=== PATIENT | female | born 1935 | race American Indian/Alaskan Native ===

== ENCOUNTER 2016-06-26 12:58 | Emergency (ER) | payer MEDICAID, MEDICARE, OTHER ==
[2016-06-26] MEDS ORDERED: Bisacodyl 10 MG Supp RECTAL ONE (13:18)
[2016-06-26] MEDS ORDERED: Ketorolac 30 MG/ML SDV IM ONE (13:24)
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
[2016-06-26] MEDS ORDERED: fentaNYL 12 MCG/HR Transdermal Patch TRDERM SCH (13:45)
[2016-06-26] MEDS ORDERED: Morphine 15 MG Tab.ER PO ONE (13:56)
[2016-06-26] MEDS ORDERED: Polyethylene Glycol 3350 Powder 17 GM Packet PO ONE (14:48)
[2016-06-26 14:56] VITALS: BP 137/68
== END 2016-06-26 15:26 | disposition home or self-care (01) ==
LOC: FB.ED 12:58
DX: K59.03 Drug induced constipation (principal); M54.41 Lumbago with sciatica, right side; E78.00 Pure hypercholesterolemia, unspecified; M19.90 Unspecified osteoarthritis, unspecified site; E11.9 Type 2 diabetes mellitus without complications
CPT/HCPCS: 96372; 99283; A9270; J1885

== ENCOUNTER 2016-06-29 14:45 | Emergency (ER) | payer MEDICARE ==
[2016-06-29] MEDS ORDERED: Lidocaine 2% 5 ML SDV INJECT ONE (15:15)
[2016-06-29] MEDS ORDERED: Ketorolac 30 MG/ML SDV IM ONE (15:15)
[2016-06-29] MEDS ORDERED: Triamcinolone Acetonide 40 MG/ML 1 ML MDV INJECT ONE (15:30)
[2016-06-29] MEDS ORDERED: Ketorolac 10 MG Tab PO ONE (16:07)
[2016-06-29 16:40] VITALS: BP 150/75
--- NOTE | 2016-06-30 01:46 | ER ---
DATE SEEN: 06/29/2016 REASON FOR VISIT: Pain, right hip. HISTORY OF PRESENT ILLNESS: This is an 80-year-old female complaining of right hip pain for 3-4 days with no trauma. Pain is on the side with radiation and worse with any movement. She tried to take Tylenol No. 3 and morphine with no improvement. REVIEW OF SYSTEMS: No fever or chills. No abdominal pain or back pain. No weakness. PAST MEDICAL HISTORY: Chronic back pain, constipation, GI bleed anemia. PHYSICAL EXAMINATION: GENERAL: Not in distress. VITAL SIGNS: Blood pressure 144/74, and pulse is 88. CHEST: Clear. ABDOMEN: Soft. MUSCULOSKELETAL: Stiff posture. There is tenderness in the right trochanteric bursa. Limited range of motion at the hip. IMPRESSION: Trochanteric bursitis acute. PLAN: I injected her with Kenalog 80 mg mixed with 2 mL of 2% into the tender most area on the right trochanteric bursa with no complications. An ice pack was placed there for 15 minutes. I also gave her 30 mg of Toradol IM. I recommended that she stop the Tylenol No. 3 and morphine, instead use Toradol 10 mg with food 3 times a day and then see Dr. Boyce tomorrow. I saw her about 1500 hours. /[id number] [place]
== END 2016-06-29 16:35 | disposition home or self-care (01) ==
LOC: FB.ED 14:45
DX: M70.61 Trochanteric bursitis, right hip (principal); Z86.2 Personal history of diseases of the blood and blood-forming organs and certain disorders involving the immune mechanism
CPT/HCPCS: 96372; 99283; J1885; J3301; 20610; A9270-GY

== ENCOUNTER 2017-04-20 04:15 | Inpatient (IN) | payer MEDICARE ==
[2017-04-20] MEDS ORDERED: Sodium Chloride 0.9% 500 ML IV ONE (04:18)
[2017-04-20] MEDS ORDERED: Ondansetron 4 MG/2 ML SDV IVPUSH ONE (04:18)
[2017-04-20] MEDS ORDERED: Pantoprazole 40 MG Vial IVPUSH ONE (04:18)
[2017-04-20] MEDS ORDERED: Pantoprazole 40 MG Vial ONE (05:24)
--- NOTE | 2017-04-20 07:43 | EDM.PDOC ---
ED HPI GENERAL MEDICAL PROBLEM - General Chief Complaint: Gastrointestinal Problem Stated Complaint: Vomiting Time Seen by Provider: 04/20/17 04:25 Source of Information: Reports: Patient, EMS History Limitations: Reports: No Limitations - History of Present Illness INITIAL COMMENTS - FREE TEXT/NARRATIVE: 81 y.o.w.f with H/O colon CA, Dx'd 20 years ago, came to the ed for abd. pain, no BM for 3 days and vomiting. Pt denied trauma. Pt lives by herself. No Dysuria , no dizziness. No other acute medical issues. BP 135/78 RR 18 Pulse ox 92% on RA Temp 36.7 pulse 87 Onset Date: 04/19/17 Onset Time: 06:00 Duration: Day(s):, Getting Worse, Intermittent Location: Reports: Abdomen Quality: Reports: Ache Severity: Mild Improves with: Reports: Rest Worsens with: Reports: Movement Context: Reports: Other (H/O abd. Surgery(?)) Associated Symptoms: Reports: Nausea/Vomiting Throat Pain Score (Numeric/FACES): 4 - Related Data Allergies Allergy/AdvReac Type Severity Reaction Status Date / Time No Known Allergies Allergy Verified 04/20/17 06:24 Home Meds: Home Meds NK [No Known Home Meds] 04/20/17 [History] Past Medical History HEENT History: Reports: Impaired Vision Cardiovascular History: Reports: High Cholesterol Gastrointestinal History: Reports: Chronic Constipation Musculoskeletal History: Reports: Back Pain, Chronic, Osteoarthritis, Osteoporosis, Other (See Below) Other Musculoskeletal History: History of broken vertebra. Neurological History: Reports: None Psychiatric History: Reports: None Endocrine/Metabolic History: Reports: Diabetes, Type II Dermatologic History: Reports: None - Infectious Disease History Infectious Disease History: Reports: Chicken Pox, Diphtheria, Shingles - Past Surgical History HEENT Surgical History: Reports: Cataract Surgery Social & Family History - Family History Family Medical History: Noncontributory - Tobacco Use Smoking Status *Q: Former Smoker Years of Tobacco use: 15 Packs/Tins Daily: 1 Used Tobacco, but Quit: No Month Tobacco Last Used: 40 YEARS AGO Second Hand Smoke Exposure: No - Caffeine Use Caffeine Use: Reports: Coffee, Tea Other Caffeine Use: 3 cups/day - Alcohol Use Days Per Week of Alcohol Use: 0 - Recreational Drug Use Recreational Drug Use: No - Living Situation & Occupation Occupation: Retired ED ROS GENERAL - Review of Systems Review Of Systems: See Below Constitutional: Reports: No Symptoms HEENT: Reports: No Symptoms Respiratory: Reports: No Symptoms Cardiovascular: Reports: No Symptoms Endocrine: Reports: No Symptoms GI/Abdominal: Reports: Abdominal Pain, Distension, Vomiting, Other (NO BM for 3 days) : Reports: No Symptoms Musculoskeletal: Reports: No Symptoms Skin: Reports: No Symptoms Neurological: Reports: No Symptoms Psychiatric: Reports: No Symptoms Hematologic/Lymphatic: Reports: No Symptoms Immunologic: Reports: No Symptoms ED EXAM, GI/ABD - Physical Exam Exam: See Below Exam Limited By: Physical Impairment General Appearance: Alert, Mild Distress, Thin Eyes: Bilateral: Normal Appearance Ears: Normal External Exam Nose: Normal Inspection Throat/Mouth: Normal Inspection, Normal Lips Head: Atraumatic, Normocephalic Neck: Normal Inspection, Supple Respiratory/Chest: No Respiratory Distress, Lungs Clear Cardiovascular: Normal Peripheral Pulses, Regular Rate, Rhythm GI/Abdominal Exam: Distended, Guarding, Tender (Female) Exam: Deferred Rectal (Female) Exam: Deferred Back Exam: Normal Inspection, Full Range of Motion Extremities: Normal Inspection, Normal Range of Motion, Non-Tender, No Pedal Edema Neurological: Alert, Oriented, CN II-XII Intact, Normal Cognition, Abnormal Gait (due to abd. pain) Psychiatric: Normal Affect Skin Exam: Warm, Dry, Intact, Normal Color, No Rash Lymphatic: No Adenopathy Course - Vital Signs Text/Narrative:: 81 y.o.w.f with H/O colon CA, Dx'd 20 years ago, came to the ed for abd. pain, no BM for 3 days and vomiting. Pt denied trauma. Pt lives by herself. No Dysuria , no dizziness. No other acute medical issues. BP 135/78 RR 18 Pulse ox 92% on RA Temp 36.7 pulse 87 PE: 81 y.o.w.f with abd. pain and womiting Imaging: CT abd/pelvis: SBO with transition point distal SB, New dx'd lumbar compression Fx (age undetermined) Impression: SBO, H/O Colon CA, Tx: Zofran, Protonix, NG tube with low volume suction Reexam: Improved 7.42 am: Consultation: Dr. Rosen, surgeon: CT abd/pelvis, he will OOT, if cancer, transfer, if no CA, admit to Hospitalist because he will be gone all day long 11.00 am: Consultation: Dr. Valdez, Hospitalist: accepted the patient for admission Plan: Admit to Med/surge inpatient Last Recorded V/S: Last Vital Signs Temp 36.6 C 04/20/17 16:00 Pulse 70 04/20/17 16:00 Resp 18 04/20/17 16:00 BP 133/65 04/20/17 16:00 Pulse Ox 94 L 04/20/17 16:00 - Orders/Labs/Meds Orders: Active Orders 24 hr Category Date Time Status Patient Status [ADT] Routine ADT 04/20/17 11:01 Active Gastrointestinal Tube Mgmt [RC] ASDIRECTED Care 04/20/17 10:55 Active Notify Provider Consults [RC] ASDIRECTED Care 04/20/17 11:11 Active Oxygen Therapy [RC] PRN Care 04/20/17 11:01 Active Up With Assistance [RC] ASDIRECTED Care 04/20/17 11:01 Active VTE/DVT Education [RC] Per Unit Routine Care 04/20/17 11:01 Active Vital Signs [RC] Q4H Care 04/20/17 11:01 Active Consult to Physician [CONS] Routine Cons 04/20/17 11:01 Ordered Nothing per Oral Now Diet [DIET] Diet 04/20/17 Breakfast Ordered Abdomen 2V AP Flat Upright [CR] Stat Exams 04/20/17 04:20 Taken CAUTI Risk Assessment [OM.PC] Routine Oth 04/20/17 11:10 Ordered Nasogastric Orogastric Tube Insertion [OM.PC] Routine Oth 04/20/17 10:53 Ordered Nasogastric Orogastric Tube Insertion [OM.PC] Urgent Oth 04/20/17 11:05 Ordered Resuscitation Status Routine Resus Stat 04/20/17 11:01 Ordered Medication Orders Lactated Ringer's (Ringers, Lactated) 1,000 mls @ 100 mls/hr IV ASDIRECTED BEBETO Last Admin: 04/20/17 13:30 Dose: 125 mls/hr Insulin Aspart (Novolog) 0 unit SUBCUT 0800,1200,1800,2100 BEBETO PRN Reason: Protocol Last Admin: 04/20/17 18:48 Dose: Not Given Sodium Chloride (Saline Flush) 10 ml FLUSH ASDIRECTED PRN PRN Reason: Keep Vein Open Labs: Laboratory Tests 04/20/17 04/20/17 04/20/17 Range/Units 04:40 04:40 04:40 WBC 6.5 (4.5-12.0) X10-3/uL RBC 4.40 (3.23-5.20) x10(6)uL Hgb 13.7 D (11.5-15.5) g/dL Hct 41.2 D (30.0-51.3) % MCV 93.6 (80-96) fL MCH 31.1 (27.7-33.6) pg MCHC 33.2 (32.2-35.4) g/dL RDW 14.4 (11.5-15.5) % Plt Count 182 (125-369) X10(3)uL MPV 8.4 (7.4-10.4) fL Neut % (Auto) 80.0 (46-82) % Lymph % (Auto) 12.9 L (13-37) % [place] % (Auto) 4.4 (4-12) % Eos % (Auto) 0 L (1.0-5.0) % Baso % (Auto) 2 (0-2) % Neut # (Auto) 5.2 (1.6-8.3) # Lymph # (Auto) 0.8 (0.6-5.0) # [place] # (Auto) 0.3 (0.0-1.3) # Eos # (Auto) 0.0 (0.0-0.8) # Baso # (Auto) 0.2 (0.0-0.2) # PT 11.0 (8.7-11.1) INR 1.09 (0.89-1.13) Sodium 143 (135-145) mmol/L Potassium 4.2 (3.5-5.3) mmol/L Chloride 106 (100-110) mmol/L Carbon Dioxide 26 (21-32) mmol/L BUN 14 (7-18) mg/dL Creatinine 0.7 (0.55-1.02) mg/dL Est Cr Clr Drug Dosing TNP Estimated GFR (MDRD) > 60 (>60) BUN/Creatinine Ratio 20.0 (9-20) Glucose 177 H (80-116) mg/dL Calcium 9.3 (8.6-10.2) mg/dL NT-Pro-B Natriuret Pep (<=450) pg/mL Urine Color (YELLOW) Urine Appearance (CLEAR) Urine pH (5.0-6.5) Ur Specific [place] (1.010-1.025) Urine Protein (NEGATIVE) mg/dL Urine Glucose (UA) (NEGATIVE) mg/dL Urine Ketones (NEGATIVE) mg/dL Urine Occult Blood (NEGATIVE) Urine Nitrite (NEGATIVE) Urine Bilirubin (NEGATIVE) Urine Urobilinogen (NEGATIVE) mg/dL Ur Leukocyte Esterase (NEGATIVE) Urine RBC (0) Urine WBC (0) Ur Squamous Epith Cells (NS,R,O) Urine Bacteria (NS) 04/20/17 04/20/17 Range/Units 04:40 06:40 WBC (4.5-12.0) X10-3/uL RBC (3.23-5.20) x10(6)uL Hgb (11.5-15.5) g/dL Hct (30.0-51.3) % MCV (80-96) fL MCH (27.7-33.6) pg MCHC (32.2-35.4) g/dL RDW (11.5-15.5) % Plt Count (125-369) X10(3)uL MPV (7.4-10.4) fL Neut % (Auto) (46-82) % Lymph % (Auto) (13-37) % [place] % (Auto) (4-12) % Eos % (Auto) (1.0-5.0) % Baso % (Auto) (0-2) % Neut # (Auto) (1.6-8.3) # Lymph # (Auto) (0.6-5.0) # [place] # (Auto) (0.0-1.3) # Eos # (Auto) (0.0-0.8) # Baso # (Auto) (0.0-0.2) # PT (8.7-11.1) INR (0.89-1.13) Sodium (135-145) mmol/L Potassium (3.5-5.3) mmol/L Chloride (100-110) mmol/L Carbon Dioxide (21-32) mmol/L BUN (7-18) mg/dL Creatinine (0.55-1.02) mg/dL Est Cr Clr Drug Dosing Estimated GFR (MDRD) (>60) BUN/Creatinine Ratio (9-20) Glucose (80-116) mg/dL Calcium (8.6-10.2) mg/dL NT-Pro-B Natriuret Pep 391 (<=450) pg/mL Urine Color Yellow (YELLOW) Urine Appearance Slightly cloudy (CLEAR) Urine pH 8.0 H (5.0-6.5) Ur Specific [place] 1.015 (1.010-1.025) Urine Protein Negative (NEGATIVE) mg/dL Urine Glucose (UA) Normal (NEGATIVE) mg/dL Urine Ketones Negative (NEGATIVE) mg/dL Urine Occult Blood Negative (NEGATIVE) Urine Nitrite Negative (NEGATIVE) Urine Bilirubin Negative (NEGATIVE) Urine Urobilinogen Normal (NEGATIVE) mg/dL Ur Leukocyte Esterase Negative (NEGATIVE) Urine RBC 0-5 (0) Urine WBC 0-5 (0) Ur Squamous Epith Cells Few H (NS,R,O) Urine Bacteria Few H (NS) Meds: Medications Generic Name Dose Route Start Last Admin Trade Name Freq PRN Reason Stop Dose Admin Lactated Ringer's 1,000 mls @ 100 mls/hr 04/20/17 13:00 04/20/17 13:30 Ringers, Lactated IV 125 mls/hr ASDIRECTED BEBETO Administration Insulin Aspart 0 unit 04/20/17 18:00 04/20/17 18:48 Novolog SUBCUT Not Given 0800,1200,1800,2100 [facility] Protocol Sodium Chloride 10 ml 04/20/17 13:31 Saline Flush FLUSH ASDIRECTED PRN Keep Vein Open Discontinued Medications Generic Name Dose Route Start Last Admin Trade Name Freq PRN Reason Stop Dose Admin Diatrizoate Meglum/Diatrizoate Sod 30 ml 04/20/17 09:26 04/20/17 10:02 Gastrografin 37% PO 04/20/17 09:27 30 ml . DIRECTED ONE Administration Sodium Chloride 500 mls @ 999 mls/hr 04/20/17 04:18 04/20/17 05:00 Normal Saline IV 04/20/17 04:48 999 mls/hr .BOLUS ONE Administration Iopamidol 75 ml 04/20/17 09:25 04/20/17 10:02 Isovue-370 (76%) IV 04/20/17 09:26 75 ml ONETIME ONE Administration Ondansetron HCl 8 mg 04/20/17 04:18 04/20/17 05:02 Zofran IVPUSH 04/20/17 04:19 8 mg ONETIME ONE Administration Pantoprazole Sodium 80 mg 04/20/17 04:18 04/20/17 05:23 Protonix Iv IVPUSH 04/20/17 04:19 80 mg .BOLUS ONE Administration Pantoprazole Sodium Confirm 04/20/17 05:24 04/20/17 05:39 Protonix Iv Administered 04/20/17 05:25 Not Given Dose 40 mg .ROUTE .STK-MED ONE Departure - Departure Time of Disposition: 10:57 Disposition: Admitted As Inpatient 65 Condition: Fair Clinical Impression: Small bowel obstruction due to adhesions - Discharge Information - My Orders Last 24 Hours: My Active Orders 04/20/17 04:20 Abdomen 2V AP Flat Upright [CR] Stat 04/20/17 10:53 Nasogastric Orogastric Tube Insertion [OM.PC] Routine 04/20/17 10:55 Gastrointestinal Tube Mgmt [RC] ASDIRECTED 04/20/17 11:01 Patient Status [ADT] Routine Oxygen Therapy [RC] PRN Up With Assistance [RC] ASDIRECTED VTE/DVT Education [RC] Per Unit Routine Vital Signs [RC] Q4H Consult to Physician [CONS] Routine Resuscitation Status Routine 04/20/17 11:05 Nasogastric Orogastric Tube Insertion [OM.PC] Urgent 04/20/17 11:10 CAUTI Risk Assessment [OM.PC] Routine 04/20/17 11:11 Notify Provider Consults [RC] ASDIRECTED 04/20/17 Breakfast Nothing per Oral Now Diet [DIET] - Assessment/Plan Last 24 Hours: My Active Orders 04/20/17 04:20 Abdomen 2V AP Flat Upright [CR] Stat 04/20/17 10:53 Nasogastric Orogastric Tube Insertion [OM.PC] Routine 04/20/17 10:55 Gastrointestinal Tube Mgmt [RC] ASDIRECTED 04/20/17 11:01 Patient Status [ADT] Routine Oxygen Therapy [RC] PRN Up With Assistance [RC] ASDIRECTED VTE/DVT Education [RC] Per Unit Routine Vital Signs [RC] Q4H Consult to Physician [CONS] Routine Resuscitation Status Routine 04/20/17 11:05 Nasogastric Orogastric Tube Insertion [OM.PC] Urgent 04/20/17 11:10 CAUTI Risk Assessment [OM.PC] Routine 04/20/17 11:11 Notify Provider Consults [RC] ASDIRECTED 04/20/17 Breakfast Nothing per Oral Now Diet [DIET]
[2017-04-20] MEDS ORDERED: Iopamidol 755 Mg/ML 75 ML Bottle IV ONE (09:25)
[2017-04-20] MEDS ORDERED: Diatrizoate Meglumine/Diatrizoate Sodium 37% 30 ML Bottle PO ONE (09:26)
--- NOTE | 2017-04-20 11:49 | CT ---
INDICATION: Abdominal pain, no BM for three days, x-ray showed small bowel obstruction. CT ABDOMEN AND CT PELVIS WITH CONTRAST: Spiral 2.5 mm axial sections were obtained through the abdomen and pelvis with oral and IV contrast, (75 mL Isovue 370 at 2 mL/second), with sagittal and coronal reconstructions 2017 and were compared with 08/28/2013 CT of the abdomen and pelvis and abdomen x-ray from 04/20/2017. Total exam DLP = 762.65 mGy-cm. There are some mild fibrotic changes at the lung bases bilaterally posteriorly in the lower lobes. Coronary artery calcification is suggested. The heart did not appear enlarged, however. Calcifications are noted in the aorta at the origins of the renal arteries and in the proximal right renal artery, in the iliac and femoral arteries. An appearance of a hernia may simply be the patients pannus. Increased severity of compression fractures is noted at L1 most severely and minimally at T12 with new compression fractures at L3 and L4 since the 2014 examination. Vacuum disk phenomenon is noted at L5-S1, although the disk is not narrowed. Vacuum disk phenomenon is also noted at T12-L1. An appearance of an AVM in the left lobe of the liver is not adequately delineated on the current examination. A tiny low density lesion is again noted in the lower pole of the right lobe of the liver, seen on coronal image #50 and essentially unchanged from the previous study. The spleen appeared normal with a splenule again noted inferolaterally. The images were somewhat delayed with a CT urogram in part obtained. No obstructive uropathy was suggested. No significant renal mass was identified, although a few tiny scar-like indentations in the cortices are noted. No large gallstones were demonstrated; however, layering out in a dependent manner, there is some increased density material, suggesting minimal gravel in the gallbladder, which is a new finding, compared with 2014. There appears to be a mild degree of thickening of the wall of the urinary bladder, which may be on the basis of cystitis but should be correlated clinically. The appendix appeared normal, visualized on coronal images #40 to #49. Proximal small bowel loops extending to the pelvis - ileum - are dilated. The dilated loops transition to normal caliber at the distal ileum in the pelvis. The exact etiology of the apparent relative obstruction is not determined. There is gas and stool in the area of the rectum to a minimal extent. Findings may represent an early or partial distal small bowel obstruction. No free air was seen. The stomach appears to be somewhat distended, which likely is on the basis of the distal small bowel obstructive process. IMPRESSION: 1. Distal small bowel obstruction with relatively normal caliber in the distal ileum. 2. Tiny hernia, ventral, unchanged from previous examination with pannus but no large ventral hernia seen. 3. Cholelithiasis. 4. Progressive osteoporotic compression fractures, mostly lumbar spine. 5. No definite liver abnormality visualized on the current study, except to note a tiny low density lesion, likely a tiny cyst in the right lobe of the liver, unchanged from previous study. 6. Very minimal scarring kidneys. 7. ASD/ASHD. 8. Minimal basilar scarring in the lung. Report was given by phone to Dr. Melendez at 1045 hours on 04/20/2017. JESID
[2017-04-20] MEDS: Lactated Ringers 1,000 ML IV SCH ×2 (13:30→23:55)
[2017-04-20] MEDS ORDERED: Sodium Chloride 0.9% 10 ML Syringe FLUSH PRN (13:31)
--- NOTE | 2017-04-20 13:48 | PCM.HP ---
H&P History of Present Illness - General Date of Service: 04/20/17 Source of Information: Patient History Limitations: Reports: No Limitations - History of Present Illness Initial Comments - Free Text/Narative: This is an 81-year-old female patient started having abdominal pain, abdominal distention and vomiting brown vomitus up. She came into the ER this morning and a CT scan that showed small bowel obstruction and was admitted with NG tube. Patient states she's had small bowel obstruction the past. She has a history of appendectomy. She denied any other history but I see she's had colon cancer in the past. She denies fevers, chills. She also states she felt constipated and has not moved her bowels or had any flatus. - Related Data Allergies/Adverse Reactions: Allergies Allergy/AdvReac Type Severity Reaction Status Date / Time No Known Allergies Allergy Verified 04/20/17 06:24 Home Medications: Home Meds NK [No Known Home Meds] 04/20/17 [History] Past Medical History HEENT History: Reports: Impaired Vision Cardiovascular History: Reports: High Cholesterol Gastrointestinal History: Reports: Chronic Constipation, Other (See Below) ( Colon cancer old chart) Musculoskeletal History: Reports: Back Pain, Chronic, Osteoarthritis, Osteoporosis, Other (See Below) Other Musculoskeletal History: History of broken vertebra. Neurological History: Reports: None Psychiatric History: Reports: None Endocrine/Metabolic History: Reports: Diabetes, Type II Dermatologic History: Reports: None - Infectious Disease History Infectious Disease History: Reports: Chicken Pox, Diphtheria, Shingles - Past Surgical History HEENT Surgical History: Reports: Cataract Surgery GI Surgical History: Reports: Colonoscopy Musculoskeletal Surgical History: Reports: Arthroscopic Knee, Other (See Below) Other Musculoskeletal Surgeries/Procedures:: hip brusitis Social & Family History - Family History Family Medical History: Noncontributory - Tobacco Use Smoking Status *Q: Never Smoker Years of Tobacco use: 15 Packs/Tins Daily: 1 Used Tobacco, but Quit: No Month Tobacco Last Used: 40 YEARS AGO Second Hand Smoke Exposure: No - Caffeine Use Caffeine Use: Reports: Coffee Other Caffeine Use: 3 cups/day - Alcohol Use Days Per Week of Alcohol Use: 0 - Recreational Drug Use Recreational Drug Use: No - Living Situation & Occupation Occupation: Retired H&P Review of Systems - Review of Systems: Review Of Systems: See Below General: Reports: No Symptoms HEENT: Reports: No Symptoms Pulmonary: Reports: No Symptoms Cardiovascular: Reports: No Symptoms Gastrointestinal: Reports: Abdominal Pain, Constipation, Distension, Nausea, Vomiting. Denies: Black Stool, Bloody Stool, Decreased Appetite, Difficulty Swallowing, Melena Genitourinary: Reports: No Symptoms Skin: Reports: No Symptoms Psychiatric: Reports: No Symptoms Neurological: Reports: No Symptoms Hematologic/Lymphatic: Reports: No Symptoms Immunologic: Reports: No Symptoms Exam - Exam Exam: See Below - Vital Signs Vital Signs: Last Vital Signs Temp 97.6 F 04/20/17 04:25 Pulse 82 04/20/17 12:00 Resp 14 04/20/17 06:50 BP 132/59 L 04/20/17 12:00 Pulse Ox 94 L 04/20/17 06:50 Weight: 136 lb 11.2 oz - Exam General: Alert, Oriented, Cooperative HEENT: Hearing Intact, Posterior Pharynx Clear, TMs Clear Neck: Supple, Trachea Midline Lungs: Clear to Auscultation, Normal Respiratory Effort. No: Crackles, Rales, Rhonchi Cardiovascular: Regular Rate, Regular Rhythm. No: Systolic Murmur GI/Abdominal Exam: Distended, Rigid, Tender (Diffuse). No: Mass Back Exam: Normal Inspection, Full Range of Motion Extremities: Normal Inspection, Non-Tender, No Pedal Edema Skin: Warm, Dry, Intact Neurological: Normal Speech, Normal Tone Neuro Extensive - Mental Status: Alert, Oriented x3, Normal Mood/Affect, Normal Cognition, Memory Intact Psychiatric: Alert, Normal Affect, Normal Mood - Patient Data Result Diagrams: 04/20/17 04:40 04/20/17 04:40 *Q Meaningful Use (ADM) - VTE *Q VTE Criteria *Q: - Stroke *Q Stroke Criteria *Q: - AMI *Q AMI Criteria *Q: - Problem List (1) Palliative care status SNOMED Code(s): 795132774 ICD Code: Z51.5 - ENCOUNTER FOR PALLIATIVE CARE Status: Acute Current Visit: Yes (2) Small bowel obstruction due to adhesions SNOMED Code(s): 131146618 ICD Code: K56.50 - INTESTNL ADHESIONS, UNSP TO PARTIAL VERSUS COMPLETE OBST Status: Acute Current Visit: Yes Problem List Initiated/Reviewed/Updated: Yes Orders Last 24hrs: Active Orders 24 hr Category Date Time Status Accu Check [Blood Glucose Check, Bedside] [RC] Care 04/20/17 12:55 Active QIDACANDBED Lactated Ringers [Ringers, Lactated] 1,000 ml Med 04/20/17 13:00 Active IV ASDIRECTED Sodium Chloride 0.9% [Saline Flush] Med 04/20/17 13:31 Active 10 ml FLUSH ASDIRECTED PRN Medication Orders Lactated Ringer's (Ringers, Lactated) 1,000 mls @ 125 mls/hr IV ASDIRECTED [facility] Last Admin: 04/20/17 13:30 Dose: 125 mls/hr Sodium Chloride (Saline Flush) 10 ml FLUSH ASDIRECTED PRN PRN Reason: Keep Vein Open Assessment/Plan Comment:: 1. Admit the patient. 2. Dr. Carvajal there was consulted. [place] patient and I talked to him and Dr. Salgado. Dr. Salgado will take over the care and do the evaluation. 3. Patient is not on anything for diabetes. Accu-Cheks 4 times a day with low- dose sliding scale. 4. NG tube to low intermittent suction. Nothing by mouth. 5. Up ad rolly.
--- NOTE | 2017-04-20 14:29 | PCM.CONS ---
H&P History of Present Illness - General Date of Service: 04/20/17 Admit Problem/Dx: 81 yo wf who was admitted through the ED earlier today. She notes a hx of abd pain, distention, and emesis. Has not had bowel movements for the past few days. CT scan demonstrated a SBO. she was admitted and since that time has had several bowel movements as well as the passage of flatus. She has had abd surgery in the past. Does have a reducible ventral hernia. She denies any fever, or chills. Throat Pain Score (Numeric/FACES): 4 - Related Data Allergies/Adverse Reactions: Allergies Allergy/AdvReac Type Severity Reaction Status Date / Time No Known Allergies Allergy Verified 04/20/17 06:24 Home Medications: Home Meds NK [No Known Home Meds] 04/20/17 [History] Past Medical History HEENT History: Reports: Impaired Vision Cardiovascular History: Reports: High Cholesterol Gastrointestinal History: Reports: Chronic Constipation, Other (See Below) ( Colon cancer old chart) Musculoskeletal History: Reports: Back Pain, Chronic, Osteoarthritis, Osteoporosis, Other (See Below) Other Musculoskeletal History: History of broken vertebra. Neurological History: Reports: None Psychiatric History: Reports: None Endocrine/Metabolic History: Reports: Diabetes, Type II Dermatologic History: Reports: None - Infectious Disease History Infectious Disease History: Reports: Chicken Pox, Diphtheria, Shingles - Past Surgical History HEENT Surgical History: Reports: Cataract Surgery GI Surgical History: Reports: Appendectomy, Colonoscopy, Other (See Below) (ex lap) Musculoskeletal Surgical History: Reports: Arthroscopic Knee, Other (See Below) Other Musculoskeletal Surgeries/Procedures:: hip brusitis Social & Family History - Family History Family Medical History: Noncontributory - Tobacco Use Smoking Status *Q: Never Smoker Years of Tobacco use: 15 Packs/Tins Daily: 1 Used Tobacco, but Quit: No Month Tobacco Last Used: 40 YEARS AGO Second Hand Smoke Exposure: No - Caffeine Use Caffeine Use: Reports: Coffee Other Caffeine Use: 3 cups/day - Alcohol Use Days Per Week of Alcohol Use: 0 - Recreational Drug Use Recreational Drug Use: No - Living Situation & Occupation Occupation: Retired H&P Review of Systems - Review of Systems: Review Of Systems: See Below General: Reports: No Symptoms HEENT: Reports: No Symptoms Pulmonary: Reports: No Symptoms Cardiovascular: Reports: No Symptoms Gastrointestinal: Reports: Abdominal Pain, Constipation Genitourinary: Reports: No Symptoms Musculoskeletal: Reports: Back Pain Skin: Reports: No Symptoms Exam - Exam Exam: See Below - Vital Signs Vital Signs: Last Vital Signs Temp 36.6 C 04/20/17 12:25 Pulse 82 04/20/17 12:25 Resp 18 04/20/17 12:25 BP 132/60 04/20/17 12:25 Pulse Ox 94 L 04/20/17 12:25 Weight: 62.006 kg - Exam General: Alert, Cooperative. No: Mild Distress Lungs: Clear to Auscultation, Normal Respiratory Effort Cardiovascular: Regular Rate, Regular Rhythm GI/Abdominal Exam: Normal Bowel Sounds, Soft, Non-Tender, Hernia (reducible ventral midline ), Other - Patient Data Result Diagrams: 04/20/17 04:40 04/20/17 04:40 Consult PN Assessment/Plan Procedures: Procedures ASSAY OF MAGNESIUM (05/21/15) ASSAY OF NATRIURETIC PEPTIDE (05/21/15) ASSAY OF TROPONIN QUANT (05/21/15) BLOOD TRANSFUSION SERVICE (12/10/15) BLOOD TYPING SEROLOGIC ABO (12/10/15) BLOOD TYPING SEROLOGIC RH(D) (12/10/15) CHEST X-RAY 1 VIEW FRONTAL (05/21/15) COMPATIBILITY TEST ANTIGLOB (12/10/15) COMPATIBILITY TEST SPIN (12/10/15) COMPLETE CBC AUTOMATED (12/10/15) COMPLETE CBC W/AUTO DIFF WBC (05/21/15) COMPREHEN METABOLIC PANEL (08/28/13) CT ABD & PELV W/CONTRAST (08/28/13) DIAGNOSTIC COLONOSCOPY (12/14/12) ELECTROCARDIOGRAM TRACING (05/21/15) EMERGENCY DEPT VISIT (06/29/16) EMERGENCY DEPT VISIT (12/10/15) EMERGENCY DEPT VISIT (05/21/15) EMERGENCY DEPT VISIT (05/14/15) EMERGENCY DEPT VISIT (08/28/13) EMERGENCY DEPT VISIT (08/28/13) EMERGENCY DEPT VISIT (08/01/13) EMERGENCY DEPT VISIT (08/01/13) EMERGENCY DEPT VISIT (12/17/12) EMERGENCY DEPT VISIT (12/17/12) EMERGENCY DEPT VISIT (12/10/12) EMERGENCY DEPT VISIT (12/10/12) EMERGENCY DEPT VISIT (10/17/12) FIBRIN DEGRADATION QUANT (05/21/15) GAIT TRAINING THERAPY (10/13/14) HEMATOCRIT (12/10/15) HEMOGLOBIN (12/10/15) HEPATIC FUNCTION PANEL (05/21/15) HPYLORI STOOL IA (12/10/15) HYDRATE IV INFUSION ADD-ON (12/10/15) MANUAL THERAPY 1/> REGIONS (10/13/14) METABOLIC PANEL TOTAL CA (12/10/15) OCCULT BLD FECES 1-3 TESTS (12/10/15) PROTHROMBIN TIME (05/21/15) PT EVALUATION (10/13/14) RBC ANTIBODY SCREEN (12/10/15) REAGENT STRIP/BLOOD GLUCOSE (08/06/13) ROUTINE VENIPUNCTURE (12/10/15) THER/PROPH/DIAG INJ IV PUSH (12/10/15) THER/PROPH/DIAG INJ SC/IM (06/29/16) THER/PROPH/DIAG IV INF ADDON (05/21/15) THER/PROPH/DIAG IV INF INIT (05/21/15) THERAPEUTIC EXERCISES (10/13/14) THROMBOPLASTIN TIME PARTIAL (05/21/15) TX/PRO/DX INJ NEW DRUG ADDON (12/10/15) URINALYSIS AUTO W/SCOPE (12/10/15) US EXAM ABDOM COMPLETE (12/17/12) X-RAY EXAM L-S SPINE 2/3 VWS (05/14/15) X-RAY EXAM OF ABDOMEN (08/06/13) X-RAY EXAM SERIES ABDOMEN (12/10/12) X-RAY EXAM THORAC SPINE 2VWS (05/14/15) X-RAY EXAM UNILAT RIBS/CHEST (10/17/12) (1) Partial small bowel obstruction SNOMED Code(s): 671063001 Code(s): K56.600 - PARTIAL INTESTINAL OBSTRUCTION, UNSPECIFIED TO CAUSE Current Visit: Yes Assessment:: appears to be resolving Problem List Initiated/Reviewed/Updated: Yes Plan: would continue current treatment will follow with you.
[2017-04-20] MEDS: Insulin Aspart 100 Units/ML 3 ML Pen SUBCUT SCH ×2 (18:48→20:30)
[2017-04-21] MEDS: Lactated Ringers 1,000 ML IV SCH (07:33)
--- NOTE | 2017-04-21 07:50 | PCM.PN ---
- General Info Date of Service: 04/21/17 Admission Dx/Problem (Free Text): She denies nausea except for she is very bothered by the NG tube. She has no abdominal pain. She's had 2 BMs last night and is passing flatus. - Patient Data Vitals - Most Recent: Last Vital Signs Temp 97 F 04/21/17 04:00 Pulse 70 04/21/17 04:00 Resp 18 04/21/17 04:00 BP 133/63 04/21/17 04:00 Pulse Ox 92 L 04/21/17 04:00 Weight - Most Recent: 136 lb 11.2 oz I&O - Last 24 Hours: Intake & Output 04/20/17 04/21/17 04/21/17 22:59 06:59 14:59 Intake Total 30 482 Output Total 200 450 Balance -170 32 Lab Results Last 24 Hours: Laboratory Results - last 24 hr 04/20/17 04/20/17 04/21/17 Range/Units 17:01 20:19 05:24 POC Glucose 72 L 81 68 L (80-116) mg/dL Med Orders - Current: Current Medications Lactated Ringer's (Ringers, Lactated) 1,000 mls @ 100 mls/hr IV ASDIRECTED [facility] Last Admin: 04/21/17 07:33 Dose: 125 mls/hr Insulin Aspart (Novolog) 0 unit SUBCUT 0800,1200,1800,2100 [facility] PRN Reason: Protocol Last Admin: 04/20/17 20:30 Dose: Not Given Sodium Chloride (Saline Flush) 10 ml FLUSH ASDIRECTED PRN PRN Reason: Keep Vein Open Discontinued Medications Diatrizoate Meglum/Diatrizoate Sod (Gastrografin 37%) 30 ml PO . DIRECTED ONE Stop: 04/20/17 09:27 Last Admin: 04/20/17 10:02 Dose: 30 ml Sodium Chloride (Normal Saline) 500 mls @ 999 mls/hr IV .BOLUS ONE Stop: 04/20/17 04:48 Last Admin: 04/20/17 05:00 Dose: 999 mls/hr Iopamidol (Isovue-370 (76%)) 75 ml IV ONETIME ONE Stop: 04/20/17 09:26 Last Admin: 04/20/17 10:02 Dose: 75 ml Ondansetron HCl (Zofran) 8 mg IVPUSH ONETIME ONE Stop: 04/20/17 04:19 Last Admin: 04/20/17 05:02 Dose: 8 mg Pantoprazole Sodium (Protonix Iv) 80 mg IVPUSH .BOLUS ONE Stop: 04/20/17 04:19 Last Admin: 04/20/17 05:23 Dose: 80 mg Pantoprazole Sodium (Protonix Iv) Confirm Administered Dose 40 mg .ROUTE .STK -MED ONE Stop: 04/20/17 05:25 Last Admin: 04/20/17 05:39 Dose: Not Given - Exam General: Alert, Oriented, Cooperative GI/Abdominal Exam: Distended (Mild much improved), Other (Hyperactive bowel sounds). No: Guarding, Rigid, Rebound - Problem List & Annotations (1) Palliative care status SNOMED Code(s): 575431802 Code(s): Z51.5 - ENCOUNTER FOR PALLIATIVE CARE Status: Acute Current Visit: Yes (2) Small bowel obstruction due to adhesions SNOMED Code(s): 608644632 Code(s): K56.50 - INTESTNL ADHESIONS, UNSP TO PARTIAL VERSUS COMPLETE OBST Status: Acute Current Visit: Yes - Problem List Review Problem List Initiated/Reviewed/Updated: Yes - My Orders Last 24 Hours: My Active Orders 04/20/17 12:55 Accu Check [Blood Glucose Check, Bedside] [RC] QIDACANDBED 04/20/17 13:00 Lactated Ringers [Ringers, Lactated] 1,000 ml IV ASDIRECTED 04/20/17 13:31 Sodium Chloride 0.9% [Saline Flush] 10 ml FLUSH ASDIRECTED PRN 04/20/17 18:00 Insulin Aspart [NovoLOG] See Protocol SUBCUT 0800,1200,1800,2100 - Plan Plan:: 1. DC NG tube. 2. Clear liquids and see how she tolerates it.
--- NOTE | 2017-04-21 08:36 | PCM.CONSN ---
- General Info Date of Service: 04/21/17 Functional Status: Denies: New Symptoms - Review of Systems Pulmonary: Reports: No Symptoms Cardiovascular: Reports: No Symptoms Gastrointestinal: Reports: Flatus. Denies: Abdominal Pain Skin: Reports: No Symptoms - Patient Data Vitals - Most Recent: Last Vital Signs Temp 36.1 C 04/21/17 04:00 Pulse 70 04/21/17 04:00 Resp 18 04/21/17 04:00 BP 133/63 04/21/17 04:00 Pulse Ox 92 L 04/21/17 04:00 Weight - Most Recent: 62.006 kg I&O - Last 24 Hours: Intake & Output 04/20/17 04/21/17 04/21/17 22:59 06:59 14:59 Intake Total 30 482 Output Total 200 450 Balance -170 32 Lab Results Last 24 Hours: Laboratory Results - last 24 hr 04/20/17 04/20/17 04/21/17 Range/Units 17:01 20:19 05:24 POC Glucose 72 L 81 68 L (80-116) mg/dL Med Orders - Current: Current Medications Lactated Ringer's (Ringers, Lactated) 1,000 mls @ 70 mls/hr IV ASDIRECTED [facility] Last Admin: 04/21/17 07:33 Dose: 125 mls/hr Insulin Aspart (Novolog) 0 unit SUBCUT 0800,1200,1800,2100 [facility] PRN Reason: Protocol Last Admin: 04/20/17 20:30 Dose: Not Given Sodium Chloride (Saline Flush) 10 ml FLUSH ASDIRECTED PRN PRN Reason: Keep Vein Open Discontinued Medications Diatrizoate Meglum/Diatrizoate Sod (Gastrografin 37%) 30 ml PO . DIRECTED ONE Stop: 04/20/17 09:27 Last Admin: 04/20/17 10:02 Dose: 30 ml Sodium Chloride (Normal Saline) 500 mls @ 999 mls/hr IV .BOLUS ONE Stop: 04/20/17 04:48 Last Admin: 04/20/17 05:00 Dose: 999 mls/hr Iopamidol (Isovue-370 (76%)) 75 ml IV ONETIME ONE Stop: 04/20/17 09:26 Last Admin: 04/20/17 10:02 Dose: 75 ml Ondansetron HCl (Zofran) 8 mg IVPUSH ONETIME ONE Stop: 04/20/17 04:19 Last Admin: 04/20/17 05:02 Dose: 8 mg Pantoprazole Sodium (Protonix Iv) 80 mg IVPUSH .BOLUS ONE Stop: 04/20/17 04:19 Last Admin: 04/20/17 05:23 Dose: 80 mg Pantoprazole Sodium (Protonix Iv) Confirm Administered Dose 40 mg .ROUTE .STK -MED ONE Stop: 04/20/17 05:25 Last Admin: 04/20/17 05:39 Dose: Not Given - Exam General: Alert, Oriented Lungs: Clear to Auscultation, Normal Respiratory Effort Cardiovascular: Regular Rate, Regular Rhythm GI/Abdominal Exam: Normal Bowel Sounds, Soft, Non-Tender Consult PN Assessment/Plan Procedures: Procedures ASSAY OF MAGNESIUM (05/21/15) ASSAY OF NATRIURETIC PEPTIDE (05/21/15) ASSAY OF TROPONIN QUANT (05/21/15) BLOOD TRANSFUSION SERVICE (12/10/15) BLOOD TYPING SEROLOGIC ABO (12/10/15) BLOOD TYPING SEROLOGIC RH(D) (12/10/15) CHEST X-RAY 1 VIEW FRONTAL (05/21/15) COMPATIBILITY TEST ANTIGLOB (12/10/15) COMPATIBILITY TEST SPIN (12/10/15) COMPLETE CBC AUTOMATED (12/10/15) COMPLETE CBC W/AUTO DIFF WBC (05/21/15) COMPREHEN METABOLIC PANEL (08/28/13) CT ABD & PELV W/CONTRAST (08/28/13) DIAGNOSTIC COLONOSCOPY (12/14/12) ELECTROCARDIOGRAM TRACING (05/21/15) EMERGENCY DEPT VISIT (06/29/16) EMERGENCY DEPT VISIT (12/10/15) EMERGENCY DEPT VISIT (05/21/15) EMERGENCY DEPT VISIT (05/14/15) EMERGENCY DEPT VISIT (08/28/13) EMERGENCY DEPT VISIT (08/28/13) EMERGENCY DEPT VISIT (08/01/13) EMERGENCY DEPT VISIT (08/01/13) EMERGENCY DEPT VISIT (12/17/12) EMERGENCY DEPT VISIT (12/17/12) EMERGENCY DEPT VISIT (12/10/12) EMERGENCY DEPT VISIT (12/10/12) EMERGENCY DEPT VISIT (10/17/12) FIBRIN DEGRADATION QUANT (05/21/15) GAIT TRAINING THERAPY (10/13/14) HEMATOCRIT (12/10/15) HEMOGLOBIN (12/10/15) HEPATIC FUNCTION PANEL (05/21/15) HPYLORI STOOL IA (12/10/15) HYDRATE IV INFUSION ADD-ON (12/10/15) MANUAL THERAPY 1/> REGIONS (10/13/14) METABOLIC PANEL TOTAL CA (12/10/15) OCCULT BLD FECES 1-3 TESTS (12/10/15) PROTHROMBIN TIME (05/21/15) PT EVALUATION (10/13/14) RBC ANTIBODY SCREEN (12/10/15) REAGENT STRIP/BLOOD GLUCOSE (08/06/13) ROUTINE VENIPUNCTURE (12/10/15) THER/PROPH/DIAG INJ IV PUSH (12/10/15) THER/PROPH/DIAG INJ SC/IM (06/29/16) THER/PROPH/DIAG IV INF ADDON (05/21/15) THER/PROPH/DIAG IV INF INIT (05/21/15) THERAPEUTIC EXERCISES (10/13/14) THROMBOPLASTIN TIME PARTIAL (05/21/15) TX/PRO/DX INJ NEW DRUG ADDON (12/10/15) URINALYSIS AUTO W/SCOPE (12/10/15) US EXAM ABDOM COMPLETE (12/17/12) X-RAY EXAM L-S SPINE 2/3 VWS (05/14/15) X-RAY EXAM OF ABDOMEN (08/06/13) X-RAY EXAM SERIES ABDOMEN (12/10/12) X-RAY EXAM THORAC SPINE 2VWS (05/14/15) X-RAY EXAM UNILAT RIBS/CHEST (10/17/12) (1) Partial small bowel obstruction SNOMED Code(s): 873542338 Code(s): K56.600 - PARTIAL INTESTINAL OBSTRUCTION, UNSPECIFIED TO CAUSE Current Visit: Yes Assessment:: appears resolved. Problem List Initiated/Reviewed/Updated: Yes Plan: NGT pulled would advance diet as tolerated. call if develops any issues
[2017-04-21] MEDS: Insulin Aspart 100 Units/ML 3 ML Pen SUBCUT SCH ×3 (10:05→17:23)
[2017-04-21 17:22] VITALS: BP 139/73
--- NOTE | 2017-04-21 17:43 | PCM.SN ---
- Free Text/Narrative Note: Patient tolerated clear liquids and ice cream today. She still had liquidy stools and passing gas. Discussed this with the surgeon. He felt if she was tolerating clear liquid she could go home. We'll discharge the patient home.
--- NOTE | 2017-04-21 17:46 | PCM.DCSUM1 ---
Discharge Summary - Hospital Course Free Text/Narrative:: Hospital course-patient was placed in the hospital with NG tube. She immediately had 2 watery stools and start passing gas. By the next morning she had 2 more bowel movements her stomach was much improved. We stopped the NG tube and started clear liquids. She tolerated them nicely. She continued to have watery stools and passing gas. She had no fevers or chills. She tolerated solids. Discussed this with the surgeon and reviewed his notes. He is okay with discharging her to home which we will do today. Brief History: This is an 81-year-old female patient started having abdominal pain, abdominal distention and vomiting brown vomitus up. She came into the ER this morning and a CT scan that showed small bowel obstruction and was admitted with NG tube. Patient states she's had small bowel obstruction the past. She has a history of appendectomy. She denied any other history but I see she's had colon cancer in the past. She denies fevers, chills. She also states she felt constipated and has not moved her bowels or had any flatus. - Discharge Data Discharge Date: 04/21/17 Discharge Disposition: Home, Self-Care 01 Condition: Good - Discharge Diagnosis/Problem(s) (1) Palliative care status SNOMED Code(s): 855298237 ICD Code: Z51.5 - ENCOUNTER FOR PALLIATIVE CARE Status: Acute Current Visit: Yes (2) Small bowel obstruction due to adhesions SNOMED Code(s): 589899745 ICD Code: K56.50 - INTESTNL ADHESIONS, UNSP TO PARTIAL VERSUS COMPLETE OBST Status: Acute Current Visit: Yes - Patient Instructions Diet: Diabetic Diet Activity: As Tolerated Driving: May Drive Today Showering/Bathing: May Shower Notify Provider of: Fever, Increased Pain, Nausea and/or Vomiting Other/Special Instructions: 1. Recheck with Dr. Limon in 1 week. - Discharge Plan Home Medications: Home Meds NK [No Known Home Meds] 04/20/17 [History] Forms: ED Department Discharge Referrals: Maxi Boyce MD [Primary Care Provider] - - Discharge Summary/Plan Comment DC Time >30 min.: No - Patient Data Vitals - Most Recent: Last Vital Signs Temp 97.8 F 04/21/17 16:00 Pulse 72 04/21/17 16:00 Resp 18 04/21/17 16:00 BP 139/73 04/21/17 16:00 Pulse Ox 96 04/21/17 16:00 Weight - Most Recent: 136 lb 11.2 oz I&O - Last 24 hours: Intake & Output 04/21/17 04/21/17 04/21/17 06:59 14:59 22:59 Intake Total 482 2025 Output Total 450 300 Balance 32 1725 Lab Results - Last 24 hrs: Laboratory Results - last 24 hr 04/20/17 04/21/17 04/21/17 Range/Units 20:19 05:24 11:39 POC Glucose 81 68 L 86 (80-116) mg/dL 04/21/17 Range/Units 16:47 POC Glucose 97 (80-116) mg/dL Med Orders - Current: Current Medications Lactated Ringer's (Ringers, Lactated) 1,000 mls @ 70 mls/hr IV ASDIRECTED [facility] Last Infusion: 04/21/17 10:06 Dose: 70 mls/hr Insulin Aspart (Novolog) 0 unit SUBCUT 0800,1200,1800,2100 [facility] PRN Reason: Protocol Last Admin: 04/21/17 17:23 Dose: Not Given Sodium Chloride (Saline Flush) 10 ml FLUSH ASDIRECTED PRN PRN Reason: Keep Vein Open Discontinued Medications Diatrizoate Meglum/Diatrizoate Sod (Gastrografin 37%) 30 ml PO . DIRECTED ONE Stop: 04/20/17 09:27 Last Admin: 04/20/17 10:02 Dose: 30 ml Sodium Chloride (Normal Saline) 500 mls @ 999 mls/hr IV .BOLUS ONE Stop: 04/20/17 04:48 Last Admin: 04/20/17 05:00 Dose: 999 mls/hr Iopamidol (Isovue-370 (76%)) 75 ml IV ONETIME ONE Stop: 04/20/17 09:26 Last Admin: 04/20/17 10:02 Dose: 75 ml Ondansetron HCl (Zofran) 8 mg IVPUSH ONETIME ONE Stop: 04/20/17 04:19 Last Admin: 04/20/17 05:02 Dose: 8 mg Pantoprazole Sodium (Protonix Iv) 80 mg IVPUSH .BOLUS ONE Stop: 04/20/17 04:19 Last Admin: 04/20/17 05:23 Dose: 80 mg Pantoprazole Sodium (Protonix Iv) Confirm Administered Dose 40 mg .ROUTE .STK -MED ONE Stop: 04/20/17 05:25 Last Admin: 04/20/17 05:39 Dose: Not Given *Q Meaningful Use (DIS) - VTE *Q VTE Criteria *Q: - Stroke *Q Stroke Criteria *Q: - AMI *Q AMI Criteria *Q:
== END 2017-04-21 18:39 | disposition home or self-care (01) | DRG 390 ==
LOC: FB.ED 04:15 → FB.MS 11:13
PROVIDERS: ADMIT Family Medicine; ATTEND Family Medicine
DX: K56.50 Intestinal adhesions [bands], unspecified as to partial versus complete obstruction (principal); E11.9 Type 2 diabetes mellitus without complications; Z85.038 Personal history of other malignant neoplasm of large intestine; M54.9 Dorsalgia, unspecified; G89.29 Other chronic pain; Z87.891 Personal history of nicotine dependence; R10.9 Unspecified abdominal pain; R11.10 Vomiting, unspecified; H54.7 Unspecified visual loss; K43.9 Ventral hernia without obstruction or gangrene
CPT/HCPCS: 36415; 74019; 74177; 80048; 81001; 82962; 83880; 85025; 85610; 96361; 96374; 96375; 99285; A9270-GY; C9113; J2405; J7040; J7120; Q9967

== ENCOUNTER 2017-05-12 09:43 | Day surgery (SDC) | payer MEDICARE ==
[2017-05-12] MEDS: Sodium Chloride 0.9% 10 ML Syringe FLUSH PRN (12:17)
[2017-05-12] MEDS ORDERED: Propofol 200 MG/20 ML SDV IV ONE (13:30)
[2017-05-12 15:33] VITALS: BP 124/63
--- NOTE | 2017-05-13 08:47 | OR ---
DATE OF OPERATION: 05/12/2017 SURGEON: Alek Bal MD PREOPERATIVE DIAGNOSES: 1. Cataract, right eye. 2. Poor red reflex, right eye. POSTOPERATIVE DIAGNOSES: 1. Cataract, right eye. 2. Poor red reflex, right eye. PROCEDURES: 1. Phacoemulsification of cataract right eye with the placement of an Orellana, model ZCB00, 21.5 diopter, foldable posterior chamber intraocular lens. 2. Staining of anterior capsule utilizing trypan blue. DESCRIPTION OF PROCEDURE: Peribulbar anesthetic was performed using a mixture of 2% lidocaine with epinephrine and Wydase. The patient was then prepped and draped in usual fashion. A 3-mm fornix based conjunctival flap was performed at the 10 o'clock position. Hemostasis was obtained using diathermy, and a 2.8 mm near clear corneal incision was made. A stab incision was made into the anterior chamber at 12 o'clock position and a second stab incision underlying the near clear corneal incision. Because of the patient's poor red reflex, an air bubble was placed into the anterior chamber, and the anterior capsule was stained utilizing trypan blue. Residual trypan blue was rinsed from the anterior chamber with balanced salt solution. A continuous tear anterior capsulotomy was then performed. Hydrodissection was accomplished with balanced salt solution and the nucleus removed in a divide and conquer fashion. Nuclear removal took quite a while, secondary to her advanced nuclear sclerosis, but it was accomplished without complication. The remaining cortical material was then removed with the irrigation aspiration unit. Viscoat was again instilled into the anterior chamber, and an Orellana, model ZCB00, 21.5 diopter, foldable posterior chamber intraocular lens was placed in to the capsular bag, the haptics being positioned at the 1 and 7 o'clock positions. The residual viscoelastic was removed from the anterior chamber with the irrigation and aspiration unit. The anterior chamber was reformed with balanced salt solution. The wound was checked and noted to be watertight. The conjunctiva was secured in its original position with diathermy. Alphagan P 0.1% and Maxitrol ointment were then placed in to the patient's eye. She tolerated the above-mentioned procedures well, and they were without complication. EPT was 40.4 seconds, this somewhat prolonged time being consistent with her advanced nuclear sclerosis. Postoperative instructions as related to activities as well as medications were reviewed with the patient. The patient was instructed to return to see me on the day following surgery for the first postoperative check. The patient was also instructed to contact me prior to that time if she were to have any problems. /[id number] DEG/MODL CC: GATO LIAO MD MTDD
== END 2017-05-12 15:25 | disposition home or self-care (01) ==
LOC: FB.SDS 09:43
PROVIDERS: ATTEND Ophthalmology
DX: H26.9 Unspecified cataract (principal); H57.8 Other specified disorders of eye and adnexa; E78.00 Pure hypercholesterolemia, unspecified; K59.09 Other constipation; E11.9 Type 2 diabetes mellitus without complications
CPT/HCPCS: 00142-QZ; C1780; J2704; J7050

== ENCOUNTER 2017-07-16 22:03 | Observation (INO) | payer MEDICARE ==
[2017-07-16] MEDS ORDERED: Sodium Chloride 0.9% 10 ML Syringe FLUSH PRN (22:20)
[2017-07-16] MEDS ORDERED: Ondansetron 4 MG/2 ML SDV IVPUSH ONE (22:22)
[2017-07-16] MEDS ORDERED: Ondansetron 4 MG/2 ML SDV IV PRN (23:33)
[2017-07-16] MEDS ORDERED: NS + KCl 20mEq/L 1,000 ML IV SCH (23:45)
--- NOTE | 2017-07-17 00:10 | ER ---
DATE SEEN: 07/16/2017 REASON FOR VISIT: Vomiting. HISTORY OF PRESENT ILLNESS: This is an 81-year-old female who came to the ER because of vomiting and abdominal cramps. She describes abdominal cramps for a day along with vomiting and inability to pass stool for one day. She feels it could be due to stress because of a recent move from where she is staying. However, she had similar symptoms in April at what time she was admitted for small bowel obstruction and treated conservatively. At that time, she had a CT scan of the abdomen and pelvis. PAST MEDICAL HISTORY: She has no active medical problems. She has had a colonoscopy, arthroscopic knee surgery, hip bursitis, and she has also had type 2 diabetes. In addition, she has had appendectomy several years ago. SOCIAL HISTORY: She does not smoke neither does she drink. She has about 3 cups of caffeine per day. CURRENT MEDICATIONS: Currently, she is not on any medications. ALLERGIES: No known allergies. PHYSICAL EXAMINATION: VITAL SIGNS: Blood pressure 142/68, pulse is 89, and temperature 98.0. EARS, NOSE, AND THROAT: Negative. NECK: Supple. CHEST: Clear. ABDOMEN: Soft, distended, nontender. Bowel sounds absent. EXTREMITIES: No edema. LABORATORY DATA: Labs show a white cell count of 6.2, potassium of 3.4. Electrolytes are normal. Amylase is 90. CT of the abdomen and pelvis that was done in April was reviewed. X-ray today flat and upright showed several air- fluid levels. IMPRESSION: Small bowel obstruction. PLAN: I spoke with Dr. Bach. He suggested to obtain a CAT scan and also do an NG tube. I discussed with the patient. The patient would like to avoid both of them at this time. However, she did accept finally to place an NG tube. I will admit her with IV fluids, keep her n.p.o., and then decision on the CT scan would be made in the morning. Dr. Bach prefers the surgeon development professional to be called also in the morning because he is leaving town himself. /[id number] [place]/AMELIE
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
[2017-07-17] MEDS ORDERED: NS + KCl 20mEq/L 1,000 ML IV SCH (09:00)
[2017-07-17 09:21] VITALS: BP 123/73
== END 2017-07-17 09:45 | disposition home or self-care (01) ==
LOC: FB.ED 22:03 → FB.MS 23:33
PROVIDERS: ADMIT Family Medicine; ATTEND Family Medicine
DX: K56.600 Partial intestinal obstruction, unspecified as to cause (principal); E78.00 Pure hypercholesterolemia, unspecified; K59.09 Other constipation; M19.90 Unspecified osteoarthritis, unspecified site; M81.0 Age-related osteoporosis without current pathological fracture; E11.9 Type 2 diabetes mellitus without complications; Z90.49 Acquired absence of other specified parts of digestive tract; Z87.891 Personal history of nicotine dependence
CPT/HCPCS: 36415; 74019; 80048; 80053; 81001; 82150; 83605; 85025; 86140; 96374; 99284; J2405; J3480; J7050; 96361; G0378

== ENCOUNTER 2018-06-10 11:53 | Emergency (ER) | payer MEDICARE ==
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
[~2018-06-10 11:53] MED LIST: Triamcinolone Acetonide 40 MG/ML 1 ML MDV IM ONE; traMADol 50 MG Tab PO ONE
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
[2018-06-10 21:14] VITALS: BP 157/74
== END 2018-06-10 12:33 | disposition home or self-care (01) ==
LOC: FB.ED 12:33
DX: S32.050A Wedge compression fracture of fifth lumbar vertebra, initial encounter for closed fracture (principal); S32.010A Wedge compression fracture of first lumbar vertebra, initial encounter for closed fracture; S32.030A Wedge compression fracture of third lumbar vertebra, initial encounter for closed fracture; M25.551 Pain in right hip; M25.552 Pain in left hip; Z79.899 Other long term (current) drug therapy; E78.00 Pure hypercholesterolemia, unspecified; E11.40 Type 2 diabetes mellitus with diabetic neuropathy, unspecified; Z87.891 Personal history of nicotine dependence; X58.XXXA Exposure to other specified factors, initial encounter
CPT/HCPCS: 96372; 99284; A9270-GY; J2001; J3301

== ENCOUNTER 2018-06-15 17:08 | Observation (INO) | payer MEDICARE ==
[2018-06-15] MEDS ORDERED: Sodium Chloride 0.9% 10 ML Syringe FLUSH PRN (17:52)
[2018-06-15] MEDS ORDERED: Sodium Chloride 0.9% 500 ML IV ONE (18:48)
[2018-06-15] MEDS ORDERED: Sodium Chloride 0.9% 1,000 ML IV SCH ×2 (19:00→22:45)
[2018-06-15] MEDS ORDERED: Iopamidol 755 Mg/ML 75 ML Bottle IV ONE (19:25)
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
[2018-06-15] MEDS ORDERED: Calcium Carbonate 500 MG Tab.Chew PO PRN (22:25)
[2018-06-15] MEDS ORDERED: Bisacodyl 10 MG Supp RECTAL PRN (22:25)
[2018-06-15] MEDS ORDERED: Enoxaparin 30 MG/0.3 ML Syringe SUBCUT SCH (22:30)
[2018-06-15] MEDS ORDERED: Ondansetron 4 MG/2 ML SDV IVPUSH PRN (22:30)
[2018-06-15] MEDS: Docusate Sodium 100 MG Cap PO SCH (22:59)
[2018-06-15] MEDS ORDERED: cefTRIAXone 1 GM in Sodium Chloride 0.9% 50 ML IV SCH (23:00)
[2018-06-16] MEDS ORDERED: Enoxaparin 40 MG/0.4 ML Syringe SUBCUT ONE (02:00)
[2018-06-16] MEDS: Morphine 2 MG/ML Syringe IVPUSH PRN ×2 (07:14→09:13)
[2018-06-16] MEDS: Acetaminophen 325 MG Tab PO PRN ×2 (07:14→17:14)
[2018-06-16] MEDS: Docusate Sodium 100 MG Cap PO SCH (08:55)
--- NOTE | 2018-06-16 10:22 | CT ---
INDICATION: Abdominal pain/urinary retention. CT ABDOMEN AND PELVIS WITH IV CONTRAST: Spiral 3.75 mm axial sections were obtained through the abdomen and pelvis with 75 ml Isovue 370 at 2 cc per second with sagittal and coronal reconstructions 06/15/18 and compared with 07/03. Total exam DLP = 614.26 mGy-cm. The lower lung lyle and pleural spaces visualized showed no definite active infiltrate or effusion. There may be some very minimal linear atelectasis in the middle lobe, however. The heart did not appear enlarged. However, there is evidence of extensive coronary artery calcification. The liver, spleen, pancreas and common bile duct appeared normal. Gallstones were noted but no evidence of cholecystitis. The right kidney was unremarkable. Both adrenal glands were grossly normal. The left kidney was normal in appearance except that the function appears to be slightly behind the right kidney, which could be on the basis of a greater degree of obstructive uropathy at the left kidney due to urinary retention (1, 000 cc urinary retention was noted). The left kidney was otherwise unremarkable --no acute obstructive uropathy is suggested. The appendix is not definitely visualized. No evidence of appendicitis was seen , however, and no evidence of bowel obstruction or free air was present. No organomegaly, mass lesions or free fluid collections were identified in the abdomen and pelvis. Uterine artery calcifications are noted. Other arterial calcifications are seen including femoral, iliac, aortic, superior mesenteric, and proximal renal arteries. A Deshpande catheter is noted in a decompressed urinary bladder. IMPRESSION: 1. Deshpande catheter in place with decompressed urinary bladder and slightly decreased functioning of the left kidney compared with the right. 2. Cholelithiasis. 3. Multiple osteoporotic compression fractures will be mentioned in lumbar spine CT. 4. ASD/ASHD. MTDD
--- NOTE | 2018-06-16 10:28 | CT ---
INDICATION: Follow up lumbar spine fractures. LUMBAR SPINE TOMOGRAPHY WITHOUT CONTRAST: Reconstructions of the lumbosacral spine were obtained 06/15/18 and compared with 04/20/17 revealing multiple osteoporotic compression fractures in the thoracolumbar spine. These are all stable when compared with 04/20/17, except for the L5 vertebral body which shows a significant further decrease in vertebral body volume to approximately 50% with overall compression and superior and caudal end plate compressions noted. The compression is greater than on the previous study 04/20/17 but its exact age is indeterminate. Nuclear bone imaging may be helpful in that regard, as felt to be clinically necessary. Total exam DLP = 614.26 mGy-cm. MTDD
--- NOTE | 2018-06-16 12:42 | HP ---
ADMISSION DATE: 06/15/2018 HISTORY OF PRESENT ILLNESS: Lianna is an 82-year-old, female, [place] resident, was seen at [facility] on 06/15/2017. Presented with a complicated history of the last 2 weeks' duration. Seen on 06/09/2018 at the walk-in clinic. Had a host of intervention care and treatment and recommendations. She was seen again on 06/10/2018, complicated back pain. CT performed, L1, L3, L5 compression fracture. L5 changed from previous intervention. She was given 2 injections over the greater trochanter, left and right hip, fitted with a back patient and discharged home on pain medications. She was seen in followup on June 15. CT revealed a massively distended bladder, catheter was placed, 100 mL residual, was admitted with IV morphine and IV Rocephin. Culture pending. LABORATORY STUDIES: White count 4900, hemoglobin 14.0. Electrolytes satisfactory; potassium 3.7, glucose 137, GFR greater than 60. Urinalysis shows mild pyuria and moderate leukocytes. Was admitted for intervention. MEDICATIONS: Daily medications: 1. Tramadol 50 mg q.i.d. 2. Colace 100 mg one daily. PAST MEDICAL HISTORY: Significant for upper and lower endoscopy, previous colon resection. No other operative procedures, hospitalizations, unusual childhood diseases, major injuries, or fractures. SOCIAL HISTORY: [facility] [place] [facility] [place] Active at [employer]. Former smoker, quit 1989. No alcohol consumption. No illicit drug use. FAMILY HISTORY: Negative for early heart disease, diabetes mellitus, or inheritable cancers. REVIEW OF SYSTEMS: Complicated back and pelvis pain. EYES: Sees well. EARS: Hears well. OROPHARYNX: Intact dentition. GASTROINTESTINAL: Bowels have been fine. GENITOURINARY: Voiding noted above. CARDIORESPIRATORY: Denies chest pain, palpitations. SKIN: No new lesions, eruptions, or moles. ENDOCRINE: No excessive thirst or urination. ALLERGY: No chronic cough. PSYCHIATRIC: Mood stable. PHYSICAL EXAMINATION: VITAL SIGNS: On admission, 36.3, 64, 178/74, 18, and 96. GENERAL: Delightful elderly female, cooperative, conversant, gives a good history. HEENT: Revealed funduscopic benign. Conjunctivae clear. Bright tympanic membranes. Decreased hearing clear nasal discharge. Mouth and oropharynx clear. NECK: Benign. Thyroid small. CHEST: Clear in all lung lyle. HEART: No ectopy or murmur. ABDOMEN: Benign. Surgical scar well healed. PELVIC: Deferred. RECTAL: Deferred. EXTREMITIES: Well perfused. Mild venous stasis changes. Localized tenderness over the lumbar spine. ASSESSMENT: 1. Acute low back pain, compression new or old L5. 2. Urinary retention, catheter in place. PLAN: We will switch from IV to oral antibiotics, oral tramadol for pain. Complementary care and well being. CT noted, bone scan planned, PT referral in place, short-term stay under observation swing bed, strong consideration. /[id number] LANDY/AMELIE
--- NOTE | 2018-06-16 13:51 | PN ---
DATE SEEN: 06/16/2018 SUBJECTIVE: Meghan Rand is a delightful 82-year-old female admitted with acute complicated back pain and marked difficulty with ambulation. Spinal stenosis not suspected. Pain problematic. IV morphine x1, tramadol will be instituted. PT referral in place. Spoke to, findings in concerns, bone scan planned, consulted through radiology. PHYSICAL EXAMINATION: VITAL SIGNS: Stable. CHEST: Clear. HEART: Regular. ABDOMEN: Benign. Focal tenderness lumbar spine. Complicated low back pain. L5 compression fracture, new or old. Urinary retention. PLAN: Catheter will be removed. We will do bladder scans, antibiotics orally, tramadol orally. Short-term observation, have swing bed consideration. /[id number] LANDY/AMELIE
[2018-06-16] MEDS: Enoxaparin 40 MG/0.4 ML Syringe SUBCUT SCH (20:45)
[2018-06-16] MEDS: Ciprofloxacin 250 MG Tab PO SCH (20:45)
[2018-06-16] MEDS ORDERED: cefTRIAXone 1 GM Vial IVPUSH SCH (23:00)
[2018-06-17] MEDS: Acetaminophen 325 MG Tab PO PRN ×2 (01:15→06:00)
[2018-06-17] MEDS: Ciprofloxacin 250 MG Tab PO SCH ×2 (11:12→21:12)
[2018-06-17] MEDS: traMADol 50 MG Tab PO SCH ×3 (12:00→21:11)
--- NOTE | 2018-06-17 14:05 | PN ---
DATE SEEN: 06/17/2018 SUBJECTIVE: Meghan Rand is a delightful 82-year-old female, who was admitted with acute complicated back pain. Please see history and physical. L1-L3 compression fractures, probably old, stable; L5 under review. CT suspicious, acuteness or nonacuteness not known, bone scan has been ordered and hopefully perform in the next couple of days. The pain appears to be reasonably well controlled. She is on Tylenol only for pain. We will switch from Tylenol to tramadol. Denies any neuropathic findings. OBJECTIVE: CHEST: Clear. HEART: Regular. ABDOMEN: Benign. Sensation normal. Toes downgoing. Mechanical back pain. ASSESSMENT: Suspicion L5 fracture. PLAN: Bone scan primary issue, need to determine the acuteness of the fracture, we will push radiology to be performed in the next couple of days. We will add oral tramadol. Intervention and care as appropriate. PT and OT involved. /[id number] LANDY/AMELIE
[2018-06-17] MEDS: Enoxaparin 40 MG/0.4 ML Syringe SUBCUT SCH (21:12)
[2018-06-18] MEDS: Acetaminophen 325 MG Tab PO PRN (01:30)
--- NOTE | 2018-06-18 09:22 | PCM.PN ---
- General Info Date of Service: 06/18/18 Subjective Update: Still has significant pain with movement. Functional Status: Reports: Tolerating Diet - Review of Systems Cardiovascular: Reports: No Symptoms Gastrointestinal: Reports: No Symptoms Genitourinary: Reports: No Symptoms - Patient Data Vitals - Most Recent: Last Vital Signs Temp 98.0 F 06/18/18 07:42 Pulse 63 06/18/18 07:42 Resp 18 06/18/18 07:42 BP 154/74 H 06/18/18 07:42 Pulse Ox 96 06/18/18 07:42 Weight - Most Recent: 63.503 kg I&O - Last 24 Hours: Intake & Output 06/17/18 06/18/18 06/18/18 22:59 06:59 14:59 Intake Total 100 0 Output Total 500 400 Balance -400 -400 Andrae Results Last 24 Hours: Microbiology 06/15/18 19:24 Urine Culture - Final Urine, Catheterized NO GROWTH AFTER 2 DAYS Med Orders - Current: Current Medications Acetaminophen (Tylenol) 650 mg PO Q4H PRN PRN Reason: analgesia/fever Last Admin: 06/18/18 01:30 Dose: 650 mg Bisacodyl (Dulcolax) 10 mg RECTAL DAILY PRN PRN Reason: Constipation Last Admin: 06/16/18 17:15 Dose: 10 mg Calcium Carbonate/Glycine (Tums) 500 mg PO Q4H PRN PRN Reason: Dyspepsia Ciprofloxacin (Ciprofloxacin Hcl) 250 mg PO BID [facility] Stop: 06/21/18 21:01 Last Admin: 06/17/18 21:12 Dose: 250 mg Enoxaparin Sodium (Lovenox) 40 mg SUBCUT Q24H [facility] Last Admin: 06/17/18 21:12 Dose: 40 mg Ondansetron HCl (Zofran) 4 mg IVPUSH Q6H PRN PRN Reason: Nausea/Vomiting Sodium Chloride (Saline Flush) 10 ml FLUSH ASDIRECTED PRN PRN Reason: Keep Vein Open Last Admin: 06/15/18 20:01 Dose: 10 ml Tramadol HCl (Ultram) 50 mg PO QID [facility] Last Admin: 06/17/18 21:11 Dose: 50 mg Discontinued Medications Ceftriaxone Sodium (Rocephin) 1 gm IVPUSH Q24H [facility] Docusate Sodium (Colace) 200 mg PO DAILY [facility] Last Admin: 06/16/18 08:55 Dose: 200 mg Enoxaparin Sodium (Lovenox) 30 mg SUBCUT Q24H [facility] Last Admin: 06/16/18 03:33 Dose: Not Given Enoxaparin Sodium (Lovenox) 40 mg SUBCUT ONETIME ONE Stop: 06/16/18 02:01 Last Admin: 06/16/18 03:35 Dose: 40 mg Sodium Chloride (Normal Saline) 500 mls @ 999 mls/hr IV .BOLUS ONE Stop: 06/15/18 19:18 Last Admin: 06/15/18 19:55 Dose: 999 mls/hr Sodium Chloride (Normal Saline) 1,000 mls @ 150 mls/hr IV ASDIRECTED [facility] Last Admin: 06/15/18 20:34 Dose: 150 mls/hr Sodium Chloride (Normal Saline) 1,000 mls @ 100 mls/hr IV ASDIRECTED [facility] Last Admin: 06/16/18 03:33 Dose: 100 mls/hr Ceftriaxone Sodium 1 gm/ (Sodium Chloride) 50 mls @ 200 mls/hr IV Q24H [facility] Last Admin: 06/15/18 22:59 Dose: 200 mls/hr Iopamidol (Isovue-370 (76%)) 75 ml IV ONETIME ONE Stop: 06/15/18 19:26 Last Admin: 06/15/18 19:50 Dose: 75 ml Morphine Sulfate (Morphine) 2 mg IVPUSH Q2H PRN PRN Reason: Moderate to severe pain Last Admin: 06/16/18 09:13 Dose: 2 mg - Exam General: Alert, Oriented Lungs: Clear to Auscultation Back Exam: Normal Inspection, Paraspinal Tenderness, Vertebral Tenderness Neurological: No New Focal Deficit Psy/Mental Status: Alert - Problem List & Annotations (1) Compression fracture of fifth lumbar vertebra SNOMED Code(s): 370423514 Code(s): S32.050A - WEDGE COMPRESSION FRACTURE OF FIFTH LUMBAR VERTEBRA, INIT Status: Acute Current Visit: Yes Qualifiers: Encounter type: subsequent encounter Fracture healing: with routine healing Qualified Code(s): S32.050D - Wedge compression fracture of fifth lumbar vertebra, subsequent encounter for fracture with routine healing - Problem List Review Problem List Initiated/Reviewed/Updated: Yes - Plan Plan:: Has Bone scan this morning. If new fractuer,surgical consult likely. In the mean time,pain control. Try Miacalcin
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
[2018-06-18] MEDS: traMADol 50 MG Tab PO SCH ×4 (10:25→21:14)
[2018-06-18] MEDS: Ciprofloxacin 250 MG Tab PO SCH ×2 (10:25→21:14)
[2018-06-18] MEDS ORDERED: fentaNYL 100 MCG/2 ML SDV IVPUSH ONE (12:25)
--- NOTE | 2018-06-18 15:12 | NM ---
INDICATION: Back pain, question recent fracture. NUCLEAR MEDICINE BONE IMAGING, LIMITED: Following intravenous administration of 32.1 mCi Tc 99m Medronate, delayed images of the spine were obtained in multiple projections and revealed increased uptake in the area of T12-L1, suggesting a relatively recent compression fracture at L1 especially, likely incremental compared with the previous examination. The L5 vertebral body area does not show increased uptake to strongly suggest a recent fracture site. There is some uptake at the posterior elements of the L5 vertebral level on the left, compatible with osteoarthritis at the apophyseal joint on that side, which is moderate to moderately severe. The osteoarthritis in that area may be a posttraumatic osteoarthritis due to fracture of the apophyseal joint on the left at L5. It appears to be in adequate position and alignment, however. Extensive dorsal kyphosis is noted with increased uptake in thoracic spine on the basis of previous fractures also. The most recent fractures - healing fracture sites are likely in the lower middle thoracic levels. No evidence of a widespread or metastatic pattern of uptake was seen. IMPRESSION: Increased uptake is noted in the lower middle thoracic spine at L1 vertebral body and at L5 posterior element on the left. 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 The alignment of the apparent fracture fragments at the L5 apophyseal joint on the left appears to be satisfactory. Report was called to Dr. Endy Taylor voicemail at 1416 hours on 06/18/18. LISA
[2018-06-18] MEDS: Enoxaparin 40 MG/0.4 ML Syringe SUBCUT SCH (21:14)
--- NOTE | 2018-06-19 09:22 | PCM.PN ---
- General Info Date of Service: 06/19/18 Subjective Update: Still has significant pain with movement.sharp,shooting - Review of Systems General: Reports: No Symptoms HEENT: Reports: No Symptoms Pulmonary: Reports: No Symptoms Cardiovascular: Reports: No Symptoms - Patient Data Vitals - Most Recent: Last Vital Signs Temp 97.3 F 06/19/18 07:37 Pulse 66 06/19/18 07:37 Resp 18 06/19/18 07:37 BP 151/73 H 06/19/18 07:37 Pulse Ox 96 06/19/18 07:37 Weight - Most Recent: 63.503 kg Med Orders - Current: Current Medications Acetaminophen (Tylenol) 650 mg PO Q4H PRN PRN Reason: analgesia/fever Last Admin: 06/18/18 01:30 Dose: 650 mg Bisacodyl (Dulcolax) 10 mg RECTAL DAILY PRN PRN Reason: Constipation Last Admin: 06/16/18 17:15 Dose: 10 mg Calcium Carbonate/Glycine (Tums) 500 mg PO Q4H PRN PRN Reason: Dyspepsia Ciprofloxacin (Ciprofloxacin Hcl) 250 mg PO BID [facility] Stop: 06/21/18 21:01 Last Admin: 06/18/18 21:14 Dose: 250 mg Enoxaparin Sodium (Lovenox) 40 mg SUBCUT Q24H [facility] Last Admin: 06/18/18 21:14 Dose: 40 mg Ondansetron HCl (Zofran) 4 mg IVPUSH Q6H PRN PRN Reason: Nausea/Vomiting Sodium Chloride (Saline Flush) 10 ml FLUSH ASDIRECTED PRN PRN Reason: Keep Vein Open Last Admin: 06/15/18 20:01 Dose: 10 ml Tramadol HCl (Ultram) 50 mg PO QID [facility] Last Admin: 06/18/18 21:14 Dose: 50 mg Discontinued Medications Ceftriaxone Sodium (Rocephin) 1 gm IVPUSH Q24H [facility] Docusate Sodium (Colace) 200 mg PO DAILY [facility] Last Admin: 06/16/18 08:55 Dose: 200 mg Enoxaparin Sodium (Lovenox) 30 mg SUBCUT Q24H [facility] Last Admin: 06/16/18 03:33 Dose: Not Given Enoxaparin Sodium (Lovenox) 40 mg SUBCUT ONETIME ONE Stop: 06/16/18 02:01 Last Admin: 06/16/18 03:35 Dose: 40 mg Fentanyl (Sublimaze) 50 mcg IVPUSH ONETIME ONE Stop: 06/18/18 12:26 Last Admin: 06/18/18 12:38 Dose: 50 mcg Sodium Chloride (Normal Saline) 500 mls @ 999 mls/hr IV .BOLUS ONE Stop: 06/15/18 19:18 Last Admin: 06/15/18 19:55 Dose: 999 mls/hr Sodium Chloride (Normal Saline) 1,000 mls @ 150 mls/hr IV ASDIRECTED [facility] Last Admin: 06/15/18 20:34 Dose: 150 mls/hr Sodium Chloride (Normal Saline) 1,000 mls @ 100 mls/hr IV ASDIRECTED [facility] Last Admin: 06/16/18 03:33 Dose: 100 mls/hr Ceftriaxone Sodium 1 gm/ (Sodium Chloride) 50 mls @ 200 mls/hr IV Q24H [facility] Last Admin: 06/15/18 22:59 Dose: 200 mls/hr Iopamidol (Isovue-370 (76%)) 75 ml IV ONETIME ONE Stop: 06/15/18 19:26 Last Admin: 06/15/18 19:50 Dose: 75 ml Morphine Sulfate (Morphine) 2 mg IVPUSH Q2H PRN PRN Reason: Moderate to severe pain Last Admin: 06/16/18 09:13 Dose: 2 mg - Exam General: Alert, Oriented Extremities: Normal Inspection Psy/Mental Status: Alert, Normal Affect, Normal Mood - Problem List & Annotations (1) Compression fracture of fifth lumbar vertebra SNOMED Code(s): 514214969 Code(s): S32.050A - WEDGE COMPRESSION FRACTURE OF FIFTH LUMBAR VERTEBRA, INIT Status: Acute Current Visit: Yes Qualifiers: Encounter type: subsequent encounter Fracture healing: with routine healing - Problem List Review Problem List Initiated/Reviewed/Updated: Yes - My Orders Last 24 Hours: My Active Orders 06/18/18 09:15 Consult to Physician [CONS] Routine 06/18/18 12:30 Notify Provider Consults [RC] ASDIRECTED - Plan Plan:: Had Bone scan yesterday. I spoke with neurosurgery.No surgical indication. In the mean time,pain control. Try Miacalcin
[2018-06-19] MEDS: Ciprofloxacin 250 MG Tab PO SCH ×2 (10:00→20:48)
[2018-06-19] MEDS: traMADol 50 MG Tab PO SCH ×4 (10:04→20:49)
[2018-06-19] MEDS: Calcium Carbonate/Vitamin D3 1250 MG-200 Unit Tab PO SCH (10:07)
[2018-06-19] MEDS: Enoxaparin 40 MG/0.4 ML Syringe SUBCUT SCH (20:49)
[2018-06-20] MEDS ORDERED: Alendronate 70 MG Tab PO SCH (07:00)
[2018-06-20] MEDS ORDERED: Polyethylene Glycol 3350 Powder 17 GM Packet PO ONE (08:24)
--- NOTE | 2018-06-20 08:24 | PCM.PN ---
- General Info Date of Service: 06/20/18 Subjective Update: No new complaints,making progress with ambulation,PT. Pain is better. Functional Status: Reports: Pain Controlled - Review of Systems HEENT: Reports: No Symptoms Pulmonary: Reports: No Symptoms Cardiovascular: Reports: No Symptoms Gastrointestinal: Reports: Constipation Psychiatric: Reports: No Symptoms - Patient Data Vitals - Most Recent: Last Vital Signs Temp 97.9 F 06/20/18 00:00 Pulse 63 06/20/18 00:00 Resp 16 06/20/18 00:00 BP 143/71 H 06/20/18 00:00 Pulse Ox 96 06/20/18 00:00 Weight - Most Recent: 63.503 kg I&O - Last 24 Hours: Intake & Output 06/19/18 06/20/18 06/20/18 22:59 06:59 14:59 Output Total 700 Balance -700 Med Orders - Current: Current Medications Acetaminophen (Tylenol) 650 mg PO Q4H PRN PRN Reason: analgesia/fever Last Admin: 06/18/18 01:30 Dose: 650 mg Alendronate Sodium (Fosamax) 70 mg PO Q7D [facility] Last Admin: 06/20/18 06:24 Dose: 70 mg Bisacodyl (Dulcolax) 10 mg RECTAL DAILY PRN PRN Reason: Constipation Last Admin: 06/16/18 17:15 Dose: 10 mg Calcium Carbonate (Calcium Carbonate/Vitamin D 1250 Mg-200 Unit) 2 tab PO DAILY [facility] Last Admin: 06/19/18 10:07 Dose: 2 tab Ciprofloxacin (Ciprofloxacin Hcl) 250 mg PO BID [facility] Stop: 06/21/18 21:01 Last Admin: 06/19/18 20:48 Dose: 250 mg Enoxaparin Sodium (Lovenox) 40 mg SUBCUT Q24H [facility] Last Admin: 06/19/18 20:49 Dose: 40 mg Ondansetron HCl (Zofran) 4 mg IVPUSH Q6H PRN PRN Reason: Nausea/Vomiting Sodium Chloride (Saline Flush) 10 ml FLUSH ASDIRECTED PRN PRN Reason: Keep Vein Open Last Admin: 06/15/18 20:01 Dose: 10 ml Tramadol HCl (Ultram) 50 mg PO QID [facility] Last Admin: 06/19/18 20:49 Dose: 50 mg Discontinued Medications Calcium Carbonate/Glycine (Tums) 500 mg PO Q4H PRN PRN Reason: Dyspepsia Ceftriaxone Sodium (Rocephin) 1 gm IVPUSH Q24H [facility] Docusate Sodium (Colace) 200 mg PO DAILY [facility] Last Admin: 06/16/18 08:55 Dose: 200 mg Enoxaparin Sodium (Lovenox) 30 mg SUBCUT Q24H [facility] Last Admin: 06/16/18 03:33 Dose: Not Given Enoxaparin Sodium (Lovenox) 40 mg SUBCUT ONETIME ONE Stop: 06/16/18 02:01 Last Admin: 06/16/18 03:35 Dose: 40 mg Fentanyl (Sublimaze) 50 mcg IVPUSH ONETIME ONE Stop: 06/18/18 12:26 Last Admin: 06/18/18 12:38 Dose: 50 mcg Sodium Chloride (Normal Saline) 500 mls @ 999 mls/hr IV .BOLUS ONE Stop: 06/15/18 19:18 Last Admin: 06/15/18 19:55 Dose: 999 mls/hr Sodium Chloride (Normal Saline) 1,000 mls @ 150 mls/hr IV ASDIRECTED [facility] Last Admin: 06/15/18 20:34 Dose: 150 mls/hr Sodium Chloride (Normal Saline) 1,000 mls @ 100 mls/hr IV ASDIRECTED [facility] Last Admin: 06/16/18 03:33 Dose: 100 mls/hr Ceftriaxone Sodium 1 gm/ (Sodium Chloride) 50 mls @ 200 mls/hr IV Q24H [facility] Last Admin: 06/15/18 22:59 Dose: 200 mls/hr Iopamidol (Isovue-370 (76%)) 75 ml IV ONETIME ONE Stop: 06/15/18 19:26 Last Admin: 06/15/18 19:50 Dose: 75 ml Morphine Sulfate (Morphine) 2 mg IVPUSH Q2H PRN PRN Reason: Moderate to severe pain Last Admin: 06/16/18 09:13 Dose: 2 mg - Exam General: Alert, Oriented Neck: Supple Extremities: Normal Inspection Neurological: No New Focal Deficit Psy/Mental Status: Alert, Normal Affect, Normal Mood - Problem List & Annotations (1) Compression fracture of fifth lumbar vertebra SNOMED Code(s): 081727283 Code(s): S32.050A - WEDGE COMPRESSION FRACTURE OF FIFTH LUMBAR VERTEBRA, INIT Status: Acute Current Visit: Yes Qualifiers: Encounter type: subsequent encounter Fracture healing: with routine healing (2) Constipation SNOMED Code(s): 10838438 Code(s): K59.00 - CONSTIPATION, UNSPECIFIED Status: Acute Current Visit: Yes Qualifiers: Constipation type: unspecified constipation type Qualified Code(s): K59.00 - Constipation, unspecified - Problem List Review Problem List Initiated/Reviewed/Updated: Yes - My Orders Last 24 Hours: My Active Orders 06/19/18 08:00 Peripheral IV Discontinue [OM.PC] Routine 06/19/18 09:45 Calcium Carbonate/Vitamin D3 [Calcium Carbonate/Vitamin D 1250 MG-200 Unit] 2 tab PO DAILY 06/19/18 20:23 Vital Signs [RC] 08,16,00 06/20/18 07:00 Alendronate [Fosamax] 70 mg PO Q7D - Plan Plan:: Continue pain control. Miralax PRN for constipation. PT/OT rehab,swing bed appropriate.
[2018-06-20] MEDS: Calcium Carbonate/Vitamin D3 1250 MG-200 Unit Tab PO SCH (09:25)
[2018-06-20] MEDS: traMADol 50 MG Tab PO SCH ×4 (09:26→21:01)
[2018-06-20] MEDS: Ciprofloxacin 250 MG Tab PO SCH ×2 (09:26→21:02)
[2018-06-20] MEDS: Enoxaparin 40 MG/0.4 ML Syringe SUBCUT SCH (21:02)
[2018-06-21 07:42] VITALS: BP 152/70
--- NOTE | 2018-06-21 08:53 | PCM.PN ---
- General Info Date of Service: 06/21/18 Subjective Update: No new complaints,making progress with ambulation,PT. Pain is better. Functional Status: Reports: Pain Controlled, Tolerating Diet - Review of Systems General: Reports: No Symptoms HEENT: Reports: No Symptoms Pulmonary: Reports: No Symptoms Cardiovascular: Reports: No Symptoms Musculoskeletal: Reports: Back Pain Neurological: Reports: No Symptoms Psychiatric: Reports: No Symptoms - Patient Data Vitals - Most Recent: Last Vital Signs Temp 97.4 F 06/21/18 07:36 Pulse 61 06/21/18 07:36 Resp 16 06/21/18 07:36 BP 152/70 H 06/21/18 07:36 Pulse Ox 98 06/21/18 07:36 Weight - Most Recent: 63.503 kg I&O - Last 24 Hours: Intake & Output 06/20/18 06/21/18 06/21/18 22:59 06:59 14:59 Intake Total 350 Output Total 225 Balance 125 Med Orders - Current: Current Medications Acetaminophen (Tylenol) 650 mg PO Q4H PRN PRN Reason: analgesia/fever Last Admin: 06/18/18 01:30 Dose: 650 mg Alendronate Sodium (Fosamax) 70 mg PO Q7D [facility] Last Admin: 06/20/18 06:24 Dose: 70 mg Bisacodyl (Dulcolax) 10 mg RECTAL DAILY PRN PRN Reason: Constipation Last Admin: 06/16/18 17:15 Dose: 10 mg Calcium Carbonate (Calcium Carbonate/Vitamin D 1250 Mg-200 Unit) 2 tab PO DAILY [facility] Last Admin: 06/20/18 09:25 Dose: 2 tab Ciprofloxacin (Ciprofloxacin Hcl) 250 mg PO BID [facility] Stop: 06/21/18 21:01 Last Admin: 06/20/18 21:02 Dose: 250 mg Enoxaparin Sodium (Lovenox) 40 mg SUBCUT Q24H [facility] Last Admin: 06/20/18 21:02 Dose: 40 mg Ondansetron HCl (Zofran) 4 mg IVPUSH Q6H PRN PRN Reason: Nausea/Vomiting Sodium Chloride (Saline Flush) 10 ml FLUSH ASDIRECTED PRN PRN Reason: Keep Vein Open Last Admin: 06/15/18 20:01 Dose: 10 ml Tramadol HCl (Ultram) 50 mg PO QID [facility] Last Admin: 06/20/18 21:01 Dose: 50 mg Discontinued Medications Calcium Carbonate/Glycine (Tums) 500 mg PO Q4H PRN PRN Reason: Dyspepsia Ceftriaxone Sodium (Rocephin) 1 gm IVPUSH Q24H [facility] Docusate Sodium (Colace) 200 mg PO DAILY [facility] Last Admin: 06/16/18 08:55 Dose: 200 mg Enoxaparin Sodium (Lovenox) 30 mg SUBCUT Q24H [facility] Last Admin: 06/16/18 03:33 Dose: Not Given Enoxaparin Sodium (Lovenox) 40 mg SUBCUT ONETIME ONE Stop: 06/16/18 02:01 Last Admin: 06/16/18 03:35 Dose: 40 mg Fentanyl (Sublimaze) 50 mcg IVPUSH ONETIME ONE Stop: 06/18/18 12:26 Last Admin: 06/18/18 12:38 Dose: 50 mcg Sodium Chloride (Normal Saline) 500 mls @ 999 mls/hr IV .BOLUS ONE Stop: 06/15/18 19:18 Last Admin: 06/15/18 19:55 Dose: 999 mls/hr Sodium Chloride (Normal Saline) 1,000 mls @ 150 mls/hr IV ASDIRECTED [facility] Last Admin: 06/15/18 20:34 Dose: 150 mls/hr Sodium Chloride (Normal Saline) 1,000 mls @ 100 mls/hr IV ASDIRECTED [facility] Last Admin: 06/16/18 03:33 Dose: 100 mls/hr Ceftriaxone Sodium 1 gm/ (Sodium Chloride) 50 mls @ 200 mls/hr IV Q24H [facility] Last Admin: 06/15/18 22:59 Dose: 200 mls/hr Iopamidol (Isovue-370 (76%)) 75 ml IV ONETIME ONE Stop: 06/15/18 19:26 Last Admin: 06/15/18 19:50 Dose: 75 ml Morphine Sulfate (Morphine) 2 mg IVPUSH Q2H PRN PRN Reason: Moderate to severe pain Last Admin: 06/16/18 09:13 Dose: 2 mg Polyethylene Glycol (Miralax) 17 gm PO ONETIME ONE Stop: 06/20/18 08:25 Last Admin: 06/20/18 09:03 Dose: 17 gm - Exam General: Alert, Oriented Back Exam: Decreased Range of Motion, Vertebral Tenderness - Problem List & Annotations (1) Compression fracture of fifth lumbar vertebra SNOMED Code(s): 983645898 Code(s): S32.050A - WEDGE COMPRESSION FRACTURE OF FIFTH LUMBAR VERTEBRA, INIT Status: Acute Current Visit: Yes Qualifiers: Encounter type: subsequent encounter Fracture healing: with routine healing (2) Constipation SNOMED Code(s): 15825358 Code(s): K59.00 - CONSTIPATION, UNSPECIFIED Status: Acute Current Visit: Yes Qualifiers: Constipation type: unspecified constipation type Qualified Code(s): K59.00 - Constipation, unspecified (3) Osteoporosis SNOMED Code(s): 81952954 Code(s): M81.0 - AGE-RELATED OSTEOPOROSIS W/O CURRENT PATHOLOGICAL FRACTURE Status: Acute Current Visit: Yes Qualifiers: Osteoporosis type: age-related - Problem List Review Problem List Initiated/Reviewed/Updated: Yes - Plan Plan:: Continue pain control. Bisphosphonates,calcium. PT/OT rehab,swing bed appropriate.
[2018-06-21] MEDS: Calcium Carbonate/Vitamin D3 1250 MG-200 Unit Tab PO SCH (09:33)
[2018-06-21] MEDS: Ciprofloxacin 250 MG Tab PO SCH (09:34)
[2018-06-21] MEDS: traMADol 50 MG Tab PO SCH (09:36)
--- NOTE | 2018-06-22 23:28 | DISCH ---
DISCHARGE DATE: 06/21/2018 REASON FOR ADMISSION: Compression fractures, lumbar spine. CONSULTATIONS: 1. Neurosurgery over the telephone. 2. Physical Therapy. 3. Dr. Vargas, Orthopedics. BRIEF HISTORY AND HOSPITAL COURSE: This is an 82-year-old female who came in to the ER with back pain. She was found to have some fractures, compression type, L1-L5. A bone scan confirmed the same on Thursday, the . I spoke with Neurosurgery, who did not feel that she would benefit from surgical intervention. Tramadol was used for pain control. I also started on bisphosphonate and vitamin D. Physical Therapy was consulted to help with strengthening and brace, and she is tolerating this well, but is too weak and unable to be independent right away. For this reason, she was discharged to swing bed for strengthening and rehab. DISCHARGE MEDICATIONS: 1. Vitamin D, 3. 2. Calcium 1 tablet a day. 3. Tramadol 50 mg q.i.d. p.r.n. 4. Acetaminophen. 5. MiraLax. 6. Fosamax 70 mg every Thursday. Please note that I spent more than 35 minutes in the discharge of the patient. /[id number] [place]/AMELIE
== END 2018-06-21 09:59 | disposition swing bed (61) ==
LOC: FB.ED 17:08 → FB.MS 21:34
PROVIDERS: ADMIT Family Medicine; ATTEND Family Medicine
DX: M80.88XD Other osteoporosis with current pathological fracture, vertebra(e), subsequent encounter for fracture with routine healing (principal); E11.9 Type 2 diabetes mellitus without complications; E78.00 Pure hypercholesterolemia, unspecified; K59.00 Constipation, unspecified; K80.20 Calculus of gallbladder without cholecystitis without obstruction; R33.9 Retention of urine, unspecified; Z87.891 Personal history of nicotine dependence; Z79.891 Long term (current) use of opiate analgesic; Z79.899 Other long term (current) drug therapy
CPT/HCPCS: 36415; 51702; 51798; 72131; 74177; 78300; 80053; 81001; 82150; 85025; 87086; 96360; 96361; 97161; 97166; 99285; A9270; A9561; J0696; J1650; J2270; J3010; J7030; J7040; J7050; Q9967

== ENCOUNTER 2018-06-21 09:58 | Inpatient (IN) | payer MEDICARE ==
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
[2018-06-21] MEDS: Docusate Sodium 100 MG Cap PO SCH (21:40)
[2018-06-21] MEDS: traMADol 50 MG Tab PO PRN (21:41)
[2018-06-22] MEDS: Calcium Carbonate/Vitamin D3 1250 MG-200 Unit Tab PO SCH (08:43)
[2018-06-22] MEDS: Docusate Sodium 100 MG Cap PO SCH ×2 (08:43→22:16)
[2018-06-22] MEDS: traMADol 50 MG Tab PO PRN (12:25)
[2018-06-23] MEDS: Docusate Sodium 100 MG Cap PO SCH ×2 (08:22→20:46)
[2018-06-23] MEDS: Calcium Carbonate/Vitamin D3 1250 MG-200 Unit Tab PO SCH (08:22)
[2018-06-23] MEDS: traMADol 50 MG Tab PO PRN ×2 (14:27→20:46)
[2018-06-24] MEDS: Docusate Sodium 100 MG Cap PO SCH ×2 (08:06→20:26)
[2018-06-24] MEDS: Calcium Carbonate/Vitamin D3 1250 MG-200 Unit Tab PO SCH (08:06)
[2018-06-24] MEDS: traMADol 50 MG Tab PO PRN (08:06)
[2018-06-24] MEDS ORDERED: Cyclobenzaprine 10 MG Tab PO ONE (12:26)
[2018-06-24] MEDS ORDERED: Naproxen 500 MG Tab PO ONE (12:27)
[2018-06-25] MEDS: traMADol 50 MG Tab PO PRN ×2 (08:05→20:24)
[2018-06-25] MEDS: Calcium Carbonate/Vitamin D3 1250 MG-200 Unit Tab PO SCH (08:08)
[2018-06-25] MEDS: Docusate Sodium 100 MG Cap PO SCH ×2 (08:08→20:21)
[2018-06-25] MEDS ORDERED: Cyclobenzaprine 10 MG Tab PO PRN (09:41)
[2018-06-26] MEDS: traMADol 50 MG Tab PO PRN (08:14)
[2018-06-26] MEDS: Calcium Carbonate/Vitamin D3 1250 MG-200 Unit Tab PO SCH (08:16)
[2018-06-26] MEDS: Docusate Sodium 100 MG Cap PO SCH ×2 (08:18→20:57)
[2018-06-27] MEDS: traMADol 50 MG Tab PO PRN ×2 (00:46→12:52)
[2018-06-27] MEDS ORDERED: Alendronate 70 MG Tab PO SCH (06:00)
[2018-06-27] MEDS: Calcium Carbonate/Vitamin D3 1250 MG-200 Unit Tab PO SCH (08:23)
[2018-06-27] MEDS: Docusate Sodium 100 MG Cap PO SCH ×2 (08:23→20:45)
--- NOTE | 2018-06-27 10:05 | PCM.PN ---
- General Info Date of Service: 06/27/18 Admission Dx/Problem (Free Text): Patient states she's doing much better. She says her pain is under control. She started to move on her own. - Patient Data Vitals - Most Recent: Last Vital Signs Temp 98.6 F 06/27/18 05:58 Pulse 83 06/27/18 05:58 Resp 20 06/27/18 05:58 BP 129/74 06/27/18 05:58 Pulse Ox 96 06/27/18 05:58 Weight - Most Recent: 139 lb 15.896 oz Med Orders - Current: Current Medications Alendronate Sodium (Fosamax) 70 mg PO Q7D [facility] Last Admin: 06/27/18 05:40 Dose: 70 mg Calcium Carbonate (Calcium Carbonate/Vitamin D 1250 Mg-200 Unit) 2 tab PO DAILY [facility] Last Admin: 06/27/18 08:23 Dose: 2 tab Cyclobenzaprine HCl (Flexeril) 5 mg PO TID PRN PRN Reason: MUSCLE SPASMS Docusate Sodium (Colace) 100 mg PO BID [facility] Last Admin: 06/27/18 08:23 Dose: 100 mg Naproxen (Naprosyn) 500 mg PO BID PRN PRN Reason: Pain Polyethylene Glycol (Miralax) 17 gm PO BID PRN PRN Reason: Constipation Tramadol HCl (Ultram) 50 mg PO Q6H PRN PRN Reason: Moderate to severe pain Last Admin: 06/27/18 00:46 Dose: 50 mg Discontinued Medications Cyclobenzaprine HCl (Flexeril) 10 mg PO ONETIME ONE Stop: 06/24/18 12:27 Last Admin: 06/24/18 12:49 Dose: 10 mg Naproxen (Naprosyn) 500 mg PO ONETIME ONE Stop: 06/24/18 12:28 Last Admin: 06/24/18 12:49 Dose: 500 mg - Exam General: Alert, Oriented, Cooperative Back Exam: Other (Kyphosis) - Problem List & Annotations (1) Chronic low back pain SNOMED Code(s): 777898151 Code(s): M54.5 - LOW BACK PAIN; G89.29 - OTHER CHRONIC PAIN Status: Acute Current Visit: No Qualifiers: Back pain laterality: right Sciatica presence: with sciatica Sciatica laterality: sciatica of right side Qualified Code(s): M54.41 - Lumbago with sciatica, right side; G89.29 - Other chronic pain (2) Compression fracture of fifth lumbar vertebra SNOMED Code(s): 286292345 Code(s): S32.050A - WEDGE COMPRESSION FRACTURE OF FIFTH LUMBAR VERTEBRA, INIT Status: Acute Current Visit: No (3) Osteoporosis SNOMED Code(s): 95130276 Code(s): M81.0 - AGE-RELATED OSTEOPOROSIS W/O CURRENT PATHOLOGICAL FRACTURE Status: Acute Current Visit: No (4) Uncontrolled pain SNOMED Code(s): 56849691928913448 Code(s): R52 - PAIN, UNSPECIFIED Status: Acute Current Visit: No - Problem List Review Problem List Initiated/Reviewed/Updated: Yes - Plan Plan:: Continue current care with PT/OT/bisphosphonates
[2018-06-27] MEDS: Polyethylene Glycol 3350 Powder 17 GM Packet PO PRN (12:56)
[2018-06-27] MEDS: Naproxen 500 MG Tab PO PRN (15:51)
[2018-06-28] MEDS: Calcium Carbonate/Vitamin D3 1250 MG-200 Unit Tab PO SCH (09:21)
[2018-06-28] MEDS: Docusate Sodium 100 MG Cap PO SCH ×2 (09:21→20:42)
[2018-06-29] MEDS: traMADol 50 MG Tab PO PRN ×2 (07:48→19:54)
[2018-06-29] MEDS: Calcium Carbonate/Vitamin D3 1250 MG-200 Unit Tab PO SCH (08:24)
[2018-06-29] MEDS: Docusate Sodium 100 MG Cap PO SCH ×3 (08:24→20:46)
[2018-06-30] MEDS: Docusate Sodium 100 MG Cap PO SCH ×2 (08:37→21:10)
[2018-06-30] MEDS: Calcium Carbonate/Vitamin D3 1250 MG-200 Unit Tab PO SCH (08:37)
[2018-06-30] MEDS: Polyethylene Glycol 3350 Powder 17 GM Packet PO PRN (18:58)
[2018-07-01] MEDS: Docusate Sodium 100 MG Cap PO SCH ×3 (08:38→20:11)
[2018-07-01] MEDS: Calcium Carbonate 500 MG Tablet PO SCH (08:38)
[2018-07-01] MEDS: Naproxen 500 MG Tab PO PRN (11:25)
[2018-07-02] MEDS: Docusate Sodium 100 MG Cap PO SCH ×2 (08:38→20:25)
[2018-07-02] MEDS: Calcium Carbonate 500 MG Tablet PO SCH (08:38)
[2018-07-03] MEDS: Docusate Sodium 100 MG Cap PO SCH (09:01)
[2018-07-03] MEDS: Calcium Carbonate 500 MG Tablet PO SCH (09:01)
[2018-07-03 14:10] VITALS: BP 119/64
--- NOTE | 2018-07-05 11:10 | PN ---
DATE SEEN: 07/02/2018 HISTORY: Ms. Rand is an 82-year-old resident of [place], [place], with a history of osteoporosis. She sustained a thoracic compression fracture on approximately on June 18. She has been receiving therapy and analgesia since then and states that she is improving. She is examined today sitting in her chair, while eating breakfast. She denies current pain while sitting. She says she is able to get up and walk about with her walker. PHYSICAL EXAMINATION: VITAL SIGNS: Blood pressure 112/64, pulse 86, and regular, respirations normal, O2 saturation 95% on room air, temp 98. SKIN: Clear without sign of trauma. HEENT: Her mouth to be dry. LUNGS: Clear to the bases. HEART: Regular without murmur or gallop. BACK: Tender to palpation at the left T10-11 area. ABDOMEN: Soft. EXTREMITIES: No edema. LABORATORY DATA: Laboratory done last about 2 weeks ago, showed hemoglobin of 14. Potassium 3.7, creatinine 0.7, glucose 137, and urinalysis unremarkable. ASSESSMENT: 1. Lumbar and thoracic compression fractures. 2. Osteoporosis. 3. Back pain. PLAN: We will continue her therapy; analgesia with tramadol and naproxen, stool softener, and Fosamax. 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 /[id number] [place]/AMELIE
--- NOTE | 2018-07-05 11:10 | DISCH ---
DISCHARGE DATE: 07/03/2018 HISTORY: Lianna is an 82-year-old woman, who was admitted to [facility] [facility] for acute back pain on 06/10/2018 to the ER. She was found to have new lumbar L5 compression fracture and evidence of several previous thoracic compression fractures. She was admitted to [facility] for pain control. She has been started on Fosamax. She is receiving tramadol for pain management, and she has been doing satisfactorily. She now is able to get up and walk without assistance. She is eating satisfactorily and is anxious to go home. The patient is discharged to home in improved condition. She is to take medications as follows: 1. Tramadol 50 mg every 6 hours p.r.n. pain. 2. MiraLAX 17 g b.i.d. p.r.n. 3. Naproxen 500 mg b.i.d. p.r.n. pain. 4. Docusate 100 mg b.i.d. 5. Calcium carbonate 1000 mg daily. 6. Alendronate 70 mg weekly. She will have home health care followup to assess function of her ADLs, ambulation, medication tolerance, and adequacy of pain control. This is based on her [id number] visit the day of discharge from [facility] and her homebound status. I would recommend a followup visit to Dr. Limon in approximately 10 days with a laboratory check to be done at that time. Prescriptions for the tramadol and alendronate are sent to [facility]. She is to follow up in the meantime p.r.n. /[id number] H[place]ÁN/AMELIE
== END 2018-07-03 10:10 | disposition home health service (06) | DRG 561 ==
LOC: FB.MS 10:00
PROVIDERS: ADMIT Family Medicine; ATTEND Family Medicine
DX: M80.88XD Other osteoporosis with current pathological fracture, vertebra(e), subsequent encounter for fracture with routine healing (principal); G89.29 Other chronic pain; E11.9 Type 2 diabetes mellitus without complications; K59.09 Other constipation; E78.00 Pure hypercholesterolemia, unspecified; H54.7 Unspecified visual loss; R33.9 Retention of urine, unspecified; M51.17 Intervertebral disc disorders with radiculopathy, lumbosacral region
CPT/HCPCS: 36415; 80048; 82306; 85018; 97110-GP; 97116-GP; 97530-GO; 97530-GP; 97535-GO; 97760-GO; A9270-GY

== ENCOUNTER 2019-06-03 09:58 | Emergency (ER) | payer MEDICARE ==
[2019-06-03 10:20] VITALS: PULSE 69
[2019-06-03] MEDS ORDERED: Baclofen 10 MG Tab PO ONE (10:28)
[2019-06-03] MEDS ORDERED: Lidocaine 5% 700 MG Patch TOP ONE (10:29)
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
[2019-06-03] MEDS ORDERED: Ketorolac 30 MG/ML SDV IVPUSH ONE (11:51)
[2019-06-03 11:58] VITALS: BP 148/61
== END 2019-06-03 12:11 | disposition home or self-care (01) ==
LOC: FB.ED 09:58
DX: M94.0 Chondrocostal junction syndrome [Tietze] (principal); E11.9 Type 2 diabetes mellitus without complications
CPT/HCPCS: 93005; 99284; A9270; 99283

== ENCOUNTER 2020-07-02 10:06 | Emergency (ER) | payer MEDICARE ==
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
[2020-07-02] MEDS ORDERED: Sodium Phosphate,Monobasic/Sodium Phosphate,Dibasic Enema 133 ML Bottle RECTAL ONE (10:55)
[2020-07-02] MEDS ORDERED: Mineral Oil 133 ML BOTTLE RECTAL ONE (10:55)
[2020-07-02 14:27] VITALS: BP 175/70; PULSE 63
== END 2020-07-02 12:54 | disposition home or self-care (01) ==
LOC: FB.ED 10:06
DX: K59.00 Constipation, unspecified (principal); E11.9 Type 2 diabetes mellitus without complications
CPT/HCPCS: 99283; A9270

== ENCOUNTER 2021-11-24 22:05 | Emergency (ER) | payer MEDICARE ==
[2021-11-24] MEDS ORDERED: Ondansetron 4 MG Tab.DIS PO ONE (22:20)
[2021-11-24] MEDS ORDERED: Aspirin 81 MG Tab.Chew PO ONE (22:39)
[2021-11-24 23:21] LABS: ESTIMATED GFR 71 mL/min (>60)
[2021-11-25] MEDS ORDERED: Ondansetron 4 MG Tab.DIS PO ONE (04:21)
[2021-11-25 05:43] VITALS: BP 156/69; PULSE 74
== END 2021-11-25 00:52 | disposition home or self-care (01) ==
LOC: FB.ED 22:05
DX: K29.70 Gastritis, unspecified, without bleeding (principal); R42 Dizziness and giddiness; E78.00 Pure hypercholesterolemia, unspecified; E11.9 Type 2 diabetes mellitus without complications; M19.90 Unspecified osteoarthritis, unspecified site
CPT/HCPCS: 36415; 80053; 83880; 84484; 85025; 93005; 99284; A9270; Q0162

== ENCOUNTER 2022-10-29 10:49 | Inpatient (IN) | payer MEDICARE ==
[2022-10-29 12:25] LABS: BASOPHILS PERCENT AUTO 0.8 % (0.2-1.5); BLOOD UREA NITROGEN,BUN 11 mg/dL (7-18); BUN/CREATININE RATIO 15.7 (9-20); CALCIUM 8.9 mg/dL (8.6-10.2); CARBON DIOXIDE,CO2 28 mmol/L (21-32); CHLORIDE,CL 99 mmol/L (100-110); CREATININE 0.7 mg/dL (0.55-1.02); EOSINOPHILS ABSOLUTE AUTO 0.2 x10-3/uL (0.0-0.8); EOSINOPHILS PERCENT AUTO 3.4 % (0.6-8.1); EST CRCL DRUG DOSING (CG) 44.78 mL/min; ESTIMATED GFR 84 mL/min (>60); GLUCOSE RANDOM 79 mg/dL (80-116); HEMATOCRIT 39.8 % (34.2-48.2); HEMOGLOBIN 13.5 g/dL (11.4-15.5); LYMPHOCYTES ABSOLUTE AUTO 1.2 x10-3/uL (1.0-4.4); LYMPHOCYTES PERCENT AUTO 24.9 % (18.4-52.1); MEAN CORPUSCULAR HGB CONC 33.9 g/dL (31.9-34.8); MEAN CORPUSCULAR VOLUME 97.2 fL (76.7-100.5); MEAN PLATELET VOLUME 7.6 fL (7.1-12.4); MONOCYTES ABSOLUTE AUTO 0.6 x10-3/uL (0.3-1.0); MONOCYTES PERCENT AUTO 11.3 % (4.4-15.7); NEUTROPHILS ABSOLUTE AUTO 2.9 x10-3/uL (1.5-6.3); NEUTROPHILS PERCENT AUTO 59.6 % (30.8-76.2); PLATELET COUNT,PLT 178 x10(3)uL (151-488); SODIUM,NA 135 mmol/L (135-145); WHITE BLOOD CELL COUNT,WBC 4.9 x10-3/uL (3.0-10.3)
[2022-10-29 12:31] LABS: A/G RATIO 0.7; ALANINE AMINOTRANSFERASE,ALT 30 U/L (12-36); ALBUMIN 3.6 g/dL (3.2-4.6); ALKALINE PHOSPHATASE 94 IU/L (56-112); ASPARTATE AMNIOTRANSFERASE,AST 31 IU/L (5-25); BILIRUBIN TOTAL 0.5 mg/dL (0.1-1.3); CREATINE KINASE,CK 57 IU/L (60-160); MAGNESIUM 2.1 mg/dL (1.8-2.5); PROTEIN TOTAL,TP 8.7 g/dL (6.0-8.0)
[2022-10-29 12:34] LABS: C-REACTIVE PROTEIN 0.46 mg/dL (<0.33); TROPONIN I 11.1 pg/mL (4.0-60.3)
[2022-10-29 12:58] LABS: BILIRUBIN,URINE NEGATIVE (NEGATIVE); GLUCOSE,URINE NORMAL (NORMAL); KETONES,URINE 15 mg/dL (NEGATIVE); LEUKOCYTE ESTERASE,URINE NEGATIVE (NEGATIVE); NITRITE,URINE NEGATIVE (NEGATIVE); OCCULT BLOOD,URINE TRACE (NEGATIVE); PH,URINE 6.5 (5.0-6.5); PROTEIN,URINE NEGATIVE (NEGATIVE); UROBILINOGEN,URINE NORMAL (NEGATIVE)
[2022-10-29 12:59] LABS: APPEARANCE,URINE CLEAR (CLEAR); COLOR,URINE YELLOW (YELLOW)
[2022-10-29 13:03] LABS: BACTERIA,URINE NOT SEEN (NS); RBC,URINE 0-5 (0-5); SQUAMOUS EPITHELIAL CELLS,UR NOT SEEN (NS,R,O); WBC,URINE NOT SEEN (0-5)
[2022-10-29] MEDS ORDERED: Ondansetron 4 MG Tab.DIS PO PRN (16:57)
[2022-10-29] MEDS ORDERED: Lidocaine 4% 1 each Patch TOP SCH (17:15)
[2022-10-29] MEDS: Acetaminophen 325 MG Tab PO PRN (21:03)
[2022-10-30 06:40] LABS: BASOPHILS PERCENT AUTO 1.1 % (0.2-1.5); EOSINOPHILS ABSOLUTE AUTO 0.2 x10-3/uL (0.0-0.8); EOSINOPHILS PERCENT AUTO 3.7 % (0.6-8.1); HEMATOCRIT 38.5 % (34.2-48.2); HEMOGLOBIN 13.1 g/dL (11.4-15.5); LYMPHOCYTES ABSOLUTE AUTO 1.1 x10-3/uL (1.0-4.4); LYMPHOCYTES PERCENT AUTO 24.7 % (18.4-52.1); MEAN CORPUSCULAR VOLUME 97.2 fL (76.7-100.5); MEAN PLATELET VOLUME 7.7 fL (7.1-12.4); MONOCYTES ABSOLUTE AUTO 0.6 x10-3/uL (0.3-1.0); MONOCYTES PERCENT AUTO 13.3 % (4.4-15.7); NEUTROPHILS ABSOLUTE AUTO 2.6 x10-3/uL (1.5-6.3); NEUTROPHILS PERCENT AUTO 57.2 % (30.8-76.2); PLATELET COUNT,PLT 162 x10(3)uL (151-488); RED BLOOD CELL COUNT 3.96 x10(6)uL (3.60-5.20); RED CELL DISTRIBUTION WIDTH 13.9 % (12.3-16.5); WHITE BLOOD CELL COUNT,WBC 4.5 x10-3/uL (3.0-10.3)
[2022-10-30 06:48] LABS: A/G RATIO 0.7; ALANINE AMINOTRANSFERASE,ALT 23 U/L (12-36); ALBUMIN 3.2 g/dL (3.2-4.6); ALKALINE PHOSPHATASE 82 IU/L (56-112); ASPARTATE AMNIOTRANSFERASE,AST 30 IU/L (5-25); BILIRUBIN TOTAL 0.6 mg/dL (0.1-1.3); BLOOD UREA NITROGEN,BUN 14 mg/dL (7-18); CALCIUM 8.8 mg/dL (8.6-10.2); CARBON DIOXIDE,CO2 26 mmol/L (21-32); CHLORIDE,CL 102 mmol/L (100-110); CREATININE 0.7 mg/dL (0.55-1.02); EST CRCL DRUG DOSING (CG) 44.78 mL/min; ESTIMATED GFR 84 mL/min (>60); GLUCOSE RANDOM 79 mg/dL (80-116); POTASSIUM,K 3.7 mmol/L (3.5-5.3); SODIUM,NA 137 mmol/L (135-145)
[2022-10-30 07:15] LABS: TSH ULTRASENSITIVE 0.94 IU/mL (0.36-3.74)
[2022-10-30] MEDS: Acetaminophen 325 MG Tab PO PRN ×2 (08:46→12:52)
[2022-10-30] MEDS: Lidocaine 4% 1 each Patch TOP SCH (08:46)
[2022-10-30] MEDS ORDERED: Lidocaine 4% 1 each Patch TOP SCH (18:00)
[2022-10-30] MEDS: Naproxen 250 MG Tab PO PRN (20:15)
[2022-10-30] MEDS: Melatonin 3 MG Tab PO SCH (20:15)
[2022-10-31] MEDS: Acetaminophen 325 MG Tab PO PRN ×4 (03:52→21:51)
[2022-10-31] MEDS: Naproxen 250 MG Tab PO PRN ×2 (07:53→21:51)
[2022-10-31] MEDS: Lidocaine 4% 1 each Patch TOP SCH (14:32)
[2022-10-31] MEDS: Melatonin 3 MG Tab PO SCH (20:01)
[2022-11-01] MEDS ORDERED: methylPREDNISolone Acetate 80 MG/ML SDV IARTIC ONE (09:26)
[2022-11-01] MEDS ORDERED: LIDOCAINE 2% ONE (09:45)
[2022-11-01] MEDS ORDERED: Lidocaine 2% 5 ML SDV INJECT ONE (09:45)
[2022-11-01] MEDS: Lidocaine 4% 1 each Patch TOP SCH (10:18)
[2022-11-01] MEDS: Naproxen 250 MG Tab PO PRN (11:26)
[2022-11-01] MEDS: Acetaminophen 325 MG Tab PO PRN (13:39)
[2022-11-01] MEDS: traMADol 50 MG Tab PO PRN (16:11)
[2022-11-01] MEDS: Melatonin 3 MG Tab PO SCH (20:09)
[2022-11-02] MEDS: Lidocaine 4% 1 each Patch TOP SCH (08:06)
[2022-11-02] MEDS: Polyethylene Glycol 3350 Powder 17 GM Packet PO PRN (12:53)
[2022-11-02] MEDS: traMADol 50 MG Tab PO PRN (16:24)
[2022-11-02] MEDS: Melatonin 3 MG Tab PO SCH (20:54)
[2022-11-03] MEDS: traMADol 50 MG Tab PO PRN ×2 (08:25→18:55)
[2022-11-03] MEDS: Polyethylene Glycol 3350 Powder 17 GM Packet PO PRN (08:27)
[2022-11-03] MEDS: Lidocaine 4% 1 each Patch TOP SCH (08:35)
[2022-11-03] MEDS: Melatonin 3 MG Tab PO SCH (21:11)
[2022-11-04] MEDS: Lidocaine 4% 1 each Patch TOP SCH (08:02)
[2022-11-04 08:49] VITALS: BP 143/55; PULSE 70
== END 2022-11-04 11:20 | disposition home health service (06) | DRG 948 ==
LOC: FB.ED 10:49 → FB.MS 16:32
PROVIDERS: ADMIT Family Medicine; ATTEND Family Medicine
DX: R41.82 Altered mental status, unspecified (principal); M70.61 Trochanteric bursitis, right hip; M79.18 Myalgia, other site; K59.09 Other constipation; R53.1 Weakness; D64.9 Anemia, unspecified; F03.90 Unspecified dementia, unspecified severity, without behavioral disturbance, psychotic disturbance, mood disturbance, and anxiety; R26.2 Difficulty in walking, not elsewhere classified; G89.29 Other chronic pain; M54.42 Lumbago with sciatica, left side; Z51.5 Encounter for palliative care; S32.059G Unspecified fracture of fifth lumbar vertebra, subsequent encounter for fracture with delayed healing; M81.0 Age-related osteoporosis without current pathological fracture; Z98.49 Cataract extraction status, unspecified eye; Z90.49 Acquired absence of other specified parts of digestive tract; W01.0XXD Fall on same level from slipping, tripping and stumbling without subsequent striking against object, subsequent encounter; M25.551 Pain in right hip; M25.552 Pain in left hip; I45.10 Unspecified right bundle-branch block; E11.9 Type 2 diabetes mellitus without complications; E78.00 Pure hypercholesterolemia, unspecified
CPT/HCPCS: 36415; 70450; 74019; 74176; 80053; 81001; 82140; 82550; 82607; 82746; 83735; 84443; 84484; 85025; 85651; 86140; 93005; 93010; 96125-GN; 97161-GP; 97165-GO; 97530-GO; 97530-GP; 97535-GO; 99285; A9270-GY; J1040